=== PATIENT | female | born 1965 | race Caucasian/White ===

== ENCOUNTER → 2022-06-15 11:35 | Outpatient (CLI) | payer OTHER, SELFPAY ==
--- NOTE | ~2022-06-15 | US_ITS ---
EXAMINATION: US transvaginal DATE: 06/15/2022 12:02 INDICATION: Follow-up ovarian cyst Comparison:No prior studies for comparison. TECHNIQUE: Multiple transabdominal and endovaginal sonographic images of the pelvis performed. FINDINGS: The uterus measures 6.9 x 3 x 4.3 cm. The endometrial complex measures 2 mm. The right ovary measures 4.9 x 3 x 4.3 cm and the left ovary is not visualized. In the right ovary th ere is a complicated cyst containing septations measuring 3.6 x 2.3 x 2.9 cm. There is no free fluid in the pelvis. There are no abnormal masses seen on either side. IMPRESSION: 1. Complicated septated cyst of the right ovary measuring 3.6 x 2.3 x 2.9 cm. Otherwise, unremarkable pelvic ultrasound. Reviewed, dictated and finalized at location B. IMPRESSION: 1. Complicated septated cyst of the right ovary measuring 3.6 x 2.3 x 2.9 cm. O therwise, unremarkable pelvic ultrasound.
== END ==
PROVIDERS: PCP Registered Nurse; Visit Provider Obstetrics & Gynecology Gynecology
DX: N83.291 Other ovarian cyst, right side (principal)
CPT/HCPCS: 76830

== ENCOUNTER → 2022-07-10 12:07 | Outpatient (CLI) | payer OTHER, SELFPAY ==
--- NOTE | ~2022-07-10 | MM_ITS ---
EXAMINATION: MM screening rogelio BI w marah HISTORY: Screening mammogram TECHNIQUE: Craniocaudal and mediolateral oblique 3-D tomosynthesis images were obtained and synthetic 2-D images were generated. CAD analysis was submitted and interpreted. COMPARISON: No prior mammogram is available for comparison at this institution. BREAST PARENCHYMAL COMPOSITION: The breasts are heterogeneously dense, which may obscure small masses . FINDINGS: No suspicious mass, calcification, or architectural distortion are identified in either maren ast to suggest malignancy. IMPRESSION: 1. No mammographic evidence of malignancy. 2. Recommend routine screening mammography in one year. BI-RADS Category 1: Negative Reviewed, dictated and finalized at location A.
--- NOTE | ~2022-07-10 | DEXA_ITS ---
Bone Density Report Name: YOLANDE LARRY Age: 57 Sex: Female Ethnicity: White Date of : 1965 Indication: postmenopausal; screening for osteoporosis; height loss; Referring Provider: ANIA THOMPSON Study: Bone densitometry was performed. Exam Date: July 10, 2022 Accession number: [id number] Bone Density: Region BMD T-score Z-score Classification AP Spine (L1, L2, L3) 0.990 -0.3 0.8 Normal Femoral Neck (Left) 0.903 0.5 1.5 Normal Total Hip (Left) 1.070 1.1 1.7 Normal Femoral Neck (Right) 0.957 1.0 2.0 Normal Total Hip (Right) 0.986 0.4 1.0 Normal Total Hip Mean 1.028 0.8 1.4 Normal World Health Organization criteria for BMD impression classify patients as: Normal (T-score at or above -1.0), Osteopenia (T-score between -1.0 and -2.5), or Osteoporosis (T-score at or below -2.5). 10-year Fracture Risk: FRAX not reported because: All T-scores for Spine Total, Hip Total, Femoral Neck at or above -1.0 Clinical Information Provided by Patient: Has used the following medications: Vitamin D Patient maximum height was 72 Menopause Age: 50 No regular weight bearing exercise Drinks caffeinated beverages Onset of menses at age 13 Number of children 2 Impression: The patient has normal bone mass. Discussion: BONE DENSITY IS ABOVE THE MINIMUM DESIRABLE LEVEL AT ALL SKELETAL SITES TESTED. This patient?s bone mineral density is above the minimum desirable level (T-score -1.0 or better) at all sites measured. The patient should follow a healthful lifestyle (good nutrition with adequate calcium and vitamin D, and appropriate weight-bearing exercise). Follow-Up: Consider repeating this study in 5 years or sooner if there is some new clinical indication. Reported by: [facility] on 07/10/2022 1:01:00 PM. Reviewed, dictated and finalized at location AChar [facility]
== END ==
PROVIDERS: PCP Registered Nurse; Visit Provider Obstetrics & Gynecology Gynecology
DX: Z12.31 Encounter for screening mammogram for malignant neoplasm of breast (principal); Z78.0 Asymptomatic menopausal state
CPT/HCPCS: 77063; 77067; 77080

== ENCOUNTER → 2022-08-17 10:49 | Outpatient (CLI) | payer OTHER, SELFPAY ==
--- NOTE | ~2022-08-17 | US_ITS ---
EXAMINATION: US transvaginal DATE: 08/17/2022 11:22 INDICATION: Unspecified ovarian cyst TECHNIQUE: Multiple endovaginal sonographic images of the pelvis were obtained. COMPARISON: 06/15/2022 FINDINGS: The uterus measures 6.5 x 2.9 x 4.4 cm. The endometrial complex measures 2 mm. The left ova ry is not visualized however no left adnexal abnormality is seen. The right ovary measures 4.4 x 3.3 x 3.9 cm. There is a 2.9 x 2.9 x 2.9 cm cyst of the right ovary with thin internal septation which is slightly decreased in size. There is normal vascular flow in the right ovary. There is no free fluid in the pelvis. IMPRESSION: 1. Right ovarian cyst with thin internal septation with slight decrease in size. Follow-up pelvic ult rasound in one year is recommended. Reviewed, dictated and finalized at location A. ING MACHINE UPKEEP MECHANIC HELPER IMPRESSION: 1. Right ovarian cyst with thin internal septation with slight decrease in size . Follow-up pelvic ultrasound in one year is recommended.
== END ==
PROVIDERS: PCP Registered Nurse; Visit Provider Obstetrics & Gynecology Gynecology
DX: N83.201 Unspecified ovarian cyst, right side (principal)
CPT/HCPCS: 76830

== ENCOUNTER 2024-11-16 17:58 | Observation (INO) | payer OTHER, SELFPAY ==
[2024-11-16] VITALS (19 sets, daily range): BP systolic 102–135; BP diastolic 66–87; PULSE 89–110; RESP 12–32; TEMP 36.4; O2SAT 97–100
--- NOTE | ~2024-11-16 | CT_ITS ---
History: Syncope PROCEDURE: CT head without contrast. COMPARISON: None 10/12/2024 TECHNIQUE: Axial imaging of the head performed from the skull base to the vertex without IV contrast. Sagittal a nd coronal reformations obtained. DLP: 681 mGy-cm FINDINGS: The ventricles are normal in size, shape and position. There is no mass, mass effect or midline shift. There is no abnormal extra-axial fluid collection or intracranial hemorrhage. Visualized paranasal sinuses are clear. The mastoid air cells are well aerated. No acute displaced fractures within the overlying cranium. Impression: No acute intracranial hemorrhage or suspicious mass effect. Reviewed, dictated and finalized at location A. STRIAL RELATIONS OFFICER Impression: No acute intracranial hemorrhage or suspicious mass effect.
--- NOTE | ~2024-11-16 | CT_ITS ---
Clinical Indication: Pulmonary embolus, syncope CT Scan of the Chest with Contrast: Technique: Contiguous sections were acquired throughout the chest after intravenous administration of 100 cc of Omnipaque 350. Dose reduction technique was used on this scan by utilizing automated expos ure control and iterative reconstruction technique. The dose-length product (DLP) was 509.43 mGy-cm. COMPARISON: 10/12/2024 Findings: There is no evidence of any significant mediastinal, hilar or axillary lymphadenopathy. There are a f ew small eccentric filling defects at branch points and segmental branches in the right lower lobe, s uggestive of subacute to chronic pulmonary emboli or resolving pulmonary acute pulmonary emboli. No l arge central pulmonary embolus seen.. There is no evidence of aortic dissection or aneurysm. There is no evidence of pleural or pericardial effusion. The lungs are clear. No pulmonary nodules or infiltrates are noted. Images through the upper abdomen reveal no abnormalities. Impression: Suggestion of several small subacute to chronic or resolving pulmonary emboli in segmental branches i n the right lower lobe. No large central pulmonary embolus. Clear lungs. Reviewed, dictated and finalized at location M. RETE BLOCK LAYER Impression: Suggestion of several small subacute to chronic or resolving pulmonary emboli i n segmental branches in the right lower lobe. No large central pulmonary embolu s. Clear lungs.
--- OUTSIDE RECORDS SUMMARY | 2024-11-16 18:01 | XMS_ITS | Encounter Summary ---
Author Organization [facility] Address Critical access hospital[address] [place] [address] Care Team Providers Care Kiln Furniture Caster Name Role Phone Jennifer Kinsey PA-C Primary Care Provider [phone] Maryanne Gage RN Unavailable [phone] Reason for Visit * Reason Onset Date Comments Hospital Follow Up 11/16/2024 Call to [facility]. Encounter Details Date Type Department Care Team (Late st Contact Info) Description 11/16/2024 Patient Outreach [facility] Family [facility] Internal Medicine [facility] [id number] [place] [phone] Maryanne Gage, RN [address] [place] [address] Hospital Follow Up (Call to [facility] Social History Tobacco Use Types Packs/Day Years Used Date Smoking Tobacco: Never Smokeless Tobacco: Never Comments:na Alcohol Use Standard Drinks/Week Comments Yes 1 (1 standard drink = 0.6 oz pur e alcohol) Socially, 1x per week [facility] Utilities Answer Date Recorded In the past 12 months has e electric, gas, oil, or water company threatened to shut off services in your home? No 10/09/2023 Humiliation, Afraid, Rape, and Kick questionnair e Answer Date Recorded Within the last year, have y ou been afraid of your partner or ex-partner? No 10/09/2023 Within the last year, have y ou been humiliated or emotionally abused in other ways by your partner or ex-partner? No Within the last year, have y ou been kicked, hit, slapped, or otherwise physically hurt by your partner or ex-partner? No 10/09/2023 Within the last year, have y ou been raped or forced to have any kind of sexual activity by your partner or ex-partner? No 10/09/2023 Overall Financial Resource Strain (CARDIA) Answe r Date Recorded How hard is it for you to pa y for the very basics like food, housing, medical care, and heating? Somewhat hard 10/09/2023 PHQ-2 Answer Date Recorded Patient Health Questionnaire-2 Score 0 12/02/2023 Hunger Vital Sign Answer Date Recorded Within the past 12 months, y ou worried that your food would run out before you got the money to buy more. Never true 10/09/19 24 Within the past 12 months, t he food you bought just didn't last and you didn't have money to get more. Never true 10/09/2023 PRAPARE - Transportation Answer Date Re corded In the past 12 months, has l ack of transportation kept you from medical appointments or from getting medications? No 09/17 In the past 12 months, has l ack of transportation kept you from meetings, work, or from getting things needed for daily living? No 10/09/2023 Housing Stability Vital Sign Answer Mati e Recorded In the last 12 months, was t here a time when you were not able to pay the mortgage or rent on time? No 10/09/2023 In the last 12 months, how many places have you lived? 1 10/09/2023 In the last 12 months, was t here a time when you did not have a steady place to sleep or slept in a fci (including now)? No 10/09/2023 Comments No Sex and Gender Information Value Date Recorded Sex Assigned at Female 10/16/2024 2:10 PM DIGITAL ACCOUNT COORDINATOR Legal Sex Female 9:13 PM DIGITAL ACCOUNT COORDINATOR Gender Identity Female 09/13/2021 1:09 PM DIGITAL ACCOUNT COORDINATOR Sexual Orientation Not on file documented as of this encounter Functional Status * Are you deaf or do you have serious difficulty hearing Answer Date of Assessment Author Status No 10/09/2023 6:09 PM DIGITAL ACCOUNT COORDINATOR Salina Ignacio RN Active * Are you blind or do you have serious difficulty seeing, even when wearing glasses? Answer Date of Assessment Author Status No 10/09/2023 6:09 PM Salina Mark RN Active * Do you have serious difficulty walking or climbing stairs? Answer Date of Assessment Author Status No 10/09/2023 6:09 PM Salina Mark RN Active * Do you have difficulty dressing or bathing? Answer Date of Assessment Author Status No 10/09/2023 6:09 PM Salina Mark RN Active * Because of a physical, mental, or emotional condition, do you have difficulty doing errands alone such as visiting a doctor's office or shopping? Answer Date of Assessment Author Status No 10/09/2023 6:09 PM Salina Mark RN Active documented as of this encounter Mental Status * Because of a physical, mental, or emotional condition, do you have serious difficulty concentrating, remembering, or making decisions? Answer Entry Date Author Status No 10/09/2023 6:09 PM Salina Mark RN Active documented in this encounter Plan of Treatment Upcoming Encounters Date Type Department Care Team (Late st Contact Info) Description 04/07/2025 11:45 AM CDT Office Visit [facility] [address] [phone] Jourdan Carlton MD [address] [address] documented as of this encounter Visit Diagnoses Not on filedocumented in this encounter Additional Health Concerns Infection Onset Date Last Indicated Resolved Time ESBL - Extended Spectrum Bet a-lactamase Comment:10/09/23 urine (RR) 10/09/2023 10/09/2023 Assessment Noted Time PHQ-9 Depression Total Score: 0 02/14/20 4:31 PM CDT documented as of this encounter Care Teams Kiln Furniture Caster Relationship Specialty Start Date End Date Jennifer Kisney PA-C [id number] [address] PCP - General PHYSICIAN ELECTRONIC WARFARE OPERATOR 01/31/23 Maryanne Gage, RN [address] [place] [address] Carpet Weaver (Ambulatory) REGISTERED NURSE 10/15/24 documented as of this encounter
--- OUTSIDE RECORDS SUMMARY | 2024-11-16 18:01 | XMS_ITS | Encounter Summary ---
Author Organization [facility] Address Critical access hospital[address] [place] [address] Care Team Providers Care Housekeeping Director Name Role Phone Latisha Huber APNP Primary Care Provider [phone] Ebony Mckeon RN Unavailable [phone] Jennifer Kinsey-C Primary Care Provider [phone] Annie Marques RN Unavailable [phone] Maryanne Gage RN Unavailable [phone] Reason for Referral * Surgical (Routine) - Closed Specialty Diagnoses / Procedures Referred By Contac t Referred To Contact Diagnoses Varicose veins of right lower extremity with pain Procedures Case request operating room: GREATER SAPHENOUS VEIN STRIPPING WITH HIGH LIGATIONSTAB PHLEBECTOMY Jourdan Carlton MD [facility]. [facility] [address] [place] [address] Phone: tel: fax: [place] [address] Phone: tel: Referral ID Status Reason Start Date Expiration Date Visits Re quested Visits Authorized [id number] Closed 05/26/2021 06/18/2022 1 1 Encounter Details Date Type Department Care Team (Late st Contact Info) Description 05/19/2021 Prep for Procedure [facility], [facility] [address] [place] [address] Jourdan Carlton MD [facility]. [facility] [address] [place], [place] [id number] Social History Tobacco Use Types Packs/Day Years Used Date Smoking Tobacco: Never Smokeless Tobacco: Never Alcohol Use Standard Drinks/Week Comments Yes 1 (1 standard drink = 0.6 oz pur e alcohol) Socially, 1x per week PHQ-2 Answer Date Recorded PHQ-2 Score - If the patient scores above 3, please move on to questions 3-9 0 05/17/2021 Comments No Sex and Gender Information Value Date Recorded Sex Assigned at Female 10/16/2024 2:10 PM RADIATION THERAPIST Legal Sex Female 9:13 PM RADIATION THERAPIST Gender Identity Female 09/13/2021 1:09 PM RADIATION THERAPIST Sexual Orientation Not on file COVID-19 Exposure Response Date Recorded In the last month, have you been in contact with someone who was confirmed or suspected to have Coronavirus / COVID-19? Unable to assess 05/17/2021 11:48 AM CDT documented as of this encounter Functional Status * RETIRED Are you deaf or do you have serious difficulty hearing Answer Date of Assessment Author Status No 03/08/2021 6:46 PM CDT Activ e * RETIRED Are you blind or do you have serious difficulty seeing, even when wearing glasses? Answer Date of Assessment Author Status No 03/08/2021 6:46 PM CDT Activ e * Do you have serious difficulty walking or climbing stairs? Answer Date of Assessment Author Status No 03/08/2021 6:46 PM CDT Cielo Solo RN Active * Do you have difficulty dressing or bathing? Answer Date of Assessment Author Status No 03/08/2021 6:46 PM CDT Cielo Solo RN Active * Because of a physical, mental, or emotional condition, do you have difficulty doing errands alone such as visiting a doctor's office or shopping? Answer Date of Assessment Author Status No 03/08/2021 6:46 PM CDT Cielo Solo RN Active documented as of this encounter Mental Status * Because of a physical, mental, or emotional condition, do you have serious difficulty concentrating, remembering, or making decisions? Answer Entry Date Author Status No 03/08/2021 6:46 PM CDT Cielo Solo RN Active documented in this encounter Plan of Treatment Upcoming Encounters Date Type Department Care Team (Late st Contact Info) Description 04/07/2025 11:45 AM CDT Office Visit [facility] [address] [place] [phone] Jourdan Carlton MD [address] [address] Scheduled Orders Name Type Priority Associated Diagnoses Orde r Schedule Case request operating room: GREATER SAPHENOUS VEIN STRIPPING WITH HIGH LIGATIONSTAB PHLEBECTOMY Case Request Routine Once for 1 Occurrences starting 05/19/2021 until 05/19/2021 documented as of this encounter Visit Diagnoses Diagnosis Varicose veins of lower extremity with pain, right- Primary Pulmonary embolism, bilateral (CMS/HCC HHS/HCC) Other pulmonary embolism and infarction documented in this encounter Additional Health Concerns Infection Onset Date Last Indicated Resolved Time COVID-19 Rule Out 09/13/2021 09/13/2021 09/13/2021 9:37 AM RADIATION THERAPIST COVID-19 Rule Out 09/13/2021 09/13/2021 09/14/2021 9:33 PM RADIATION THERAPIST ESBL - Extended Spectrum Beta-lactamase Comment:10/09/23 urine (RR) 10/09/2023 10/09/2023 Assessment Noted Time PHQ-9 Depression Total Score: 0 05/17/20 11:47 AM CDT documented as of this encounter Care Teams Housekeeping Director Relationship Specialty Start Date End Date Latisha Huber APNP [id number] [address] PCP - General Nurse Practitioner Family 02/20/21 01/30/23 Jennifer Kinsey PA-C [address] [address] PCP - General PHYSICIAN CONTINUING EDUCATION DIRECTOR 01/31/23 Ebony Mckeon RN [address] [place] [address] Administrative Nursing Supervisor (Ambulatory) REGISTERED NURSE 05/02/21 06/13/21 Annie Marques RN [address] [place] [address] Administrative Nursing Supervisor (Ambulatory) REGISTERED NURSE 10/10/23 10/13/23 Maryanne Gage RN [address] [place] [address] Administrative Nursing Supervisor (Ambulatory) REGISTERED NURSE 10/15/24 documented as of this encounter
--- OUTSIDE RECORDS SUMMARY | 2024-11-16 18:01 | XMS_ITS | Clinical Summary ---
Author Organization [facility] Address [address] [place] [address] Care Team Providers Care Drafter Landscape Name Role Phone Jennifer Kinsey PA-C Primary Care Provider [phone] Maryanne Gage RN Unavailable [phone] Allergies No known active allergies Medications multivitamin tablet Take 1 tablet by mouth daily. Active cranberry 500 MG Cap Take 1 capsule by mouth nightly at bedtime. Active acetaminophen 325 MG tablet Take 2 tablets (650 mg total) by mouth every 6 (six) hours as needed for Pain. Active magnesium oxide 400 (241.3 Mg) MG tablet Take 1 tablet (400 mg total) by mouth nightly at bedtime. Active Cranberry Powder Take 1 capsule by mouth. Active apixaban (ELIQUIS) 5 MG tabletIndications:Perso nal history of PE (pulmonary embolism) Take 1 tablet (5 mg total) by mouth 2 (two) times daily. 180 tablet 1 Active topiramate (TOPAMAX) 50 MG TabIndications:Migraine without aura and without status migrainosus, not intractable Take 1 tablet (50 mg total) by mouth 2 (two) times daily. 180 tablet 3 024 Active ALPRAZolam (XANAX) 1 MG tabletIndications:Anxie ty Take 1 tablet 30 minutes to 1 hour prior to MRI. May repeat if needed. 2 tablet Active tirzepatide (ZEPBOUND) 2.5 MG/0.5ML injectionIndications:We ight Loss Inject 2.5 mg into the skin once a week. Indications: Weight Loss 2 mL 2 024 Active PARoxetine (PAXIL) 30 MG tabletIndications:Anxie ty take 1 tablet by mouth every day 90 tablet 1 024 Active omeprazole (PRILOSEC) 20 MG capsuleIndications:Bobo roesophageal reflux disease without esophagitis TAKE 1 CAPSULE (20 MG TOTAL) BY MOUTH NIGHTLY AT BEDTIME. 90 capsule 1 024 Active atorvastatin (LIPITOR) 40 MG tabletIndications:Famil ial hypercholesterolemia TAKE 1 TABLET BY MOUTH EVERYDAY AT BEDTIME 90 tablet 024 Active amitriptyline (ELAVIL) 50 MG tabletIndications:Migra ine without aura and without status migrainosus, not intractable TAKE 1 TABLET BY MOUTH NIGHTLY AT BEDTIME 90 tablet 1 024 Active bisacodyl EC (DULCOLAX) 5 MG Tab EC tablet Take 2 tablets (10 mg total) by mouth daily as needed (constipation) . at bedtime. Active loperamide (IMODIUM) 2 MG capsule Take 1 capsule (2 mg total) by mouth 4 (four) times daily as needed for Diarrhea. Active melatonin 3 MG tablet Take 1 tablet (3 mg total) by mouth nightly at bedtime. Active midodrine (PROAMATINE) 5 MG tablet Take 1 tablet (5 mg total) by mouth 3 (three) times daily. Active oxyCODONE-acetaminophen (PERCOCET) 5-325 MG tablet Take 1 tablet by mouth every 4 (four) hours as needed for Pain. Active dabigatran (PRADAXA) 150 MG Cap Take 1 capsule (150 mg total) by mouth 2 (two) times daily. Active predniSONE (DELTASONE) 10 mg tablet Take 1 tablet (10 mg total) by mouth daily. Active traMADol (ULTRAM) 50 MG tabletIndications:Acute Pain < 7 Day Supply Take 1 tablet (50 mg total) by mouth every 6 (six) hours as needed for Pain. Indications: Acute Pain < 7 Day Supply 20 tablet 023 2024 Discontin ued(Disco ntinued by another clinician ) Diclofenac Sodium 3 % GelIndications:Right foot pain Apply 1 Application topically 2 (two) times daily as needed. 100 g 1 024 2024 Discontin ued(Disco ntinued by another clinician ) cyclobenzaprine (FLEXERIL) 10 MG tabletIndications:Rib pain 1 TAB BY MOUTH TWICE DAILY NEEDED FOR MUSCLE PAIN. DO NOT DRIVE OR WORK WHILE TAKING MEDICATION. 30 tablet 024 2024 Discontin ued(Disco ntinued by another clinician ) buPROPion XL (WELLBUTRIN XL) 150 MG 24 hr tabletIndications:Class 1 obesity with body mass index (BMI) of 31.0 to 31.9 in adult, unspecified obesity type, unspecified whether serious comorbidity present Take 1 tablet (150 mg total) by mouth daily. 30 tablet 024 2024 Discontin ued(Disco ntinued by another clinician ) buPROPion XL (WELLBUTRIN XL) 300 MG 24 hr tabletIndications:Class 1 obesity without serious comorbidity with body mass index (BMI) of 31.0 to 31.9 in adult, unspecified obesity type TAKE 1 TABLET BY MOUTH EVERY DAY 90 tablet 025 2024 Discontin ued(Disco ntinued by another clinician ) Active Problems Problem Noted Date Diagnosed Date Other thrombophilia ([facility]) 12/13/2023 Acute cystitis without hematuria 10/10/2023 Near syncope 10/10/2023 Elevated troponin 10/09/2023 Trochanteric bursitis of both hips 02/18/2023 Overweight (BMI 25.0-29.9) 06/06/2022 Assessment & Plan (10/08/2022 12:26 PM LOOP CUTTER): We discussed the adverse effects of weight on osteoarthritis. For every 1 pound loss, 4 to 6 pounds of stress is relieved from the knee, slightly more at the ankle and slightly less at the hip. We discussed low carbohydrate diet to help with weight loss. 80% of weight loss is through diet. Sciatica of right side 12/03/2021 Assessment & Plan (12/03/2021 10:03 AM CDT): I believe this is the reason for her right leg pain and discomfort. Unfortunately on blood thinners and cannot use anti-inflammatories.. Would discontinue the narcotics as it usually does not help with nerve pain. We will begin a muscle relaxer and formal physical therapy. Follow-up in 6 weeks if no significant improvement. Primary osteoarthritis of both knees 12/03/2021 Assessment & Plan (10/06/2024 7:42 PM LOOP CUTTER): We discussed the risks, benefits, and alternatives. The only thing proven to slow the progression of osteoarthritis is weight loss. Every pound lost relieves 4 to 6 pounds of stress across the knee. We discussed unloading braces. Formal physical therapy to help with flexibility, mobility, and strength. We discussed TENS units. Nonsteroidal anti-inflammatories as well as Tylenol and pain medication and their side effects. We discussed steroid versus Visco supplement injection. We discussed eventual total knee arthroplasty. Recommendation at this time, went over the risks, the benefit, , as well as the alternatives Steroid was injected bilateral. Tolerated well.. We will see her back in 1 month for gel shot injection. Assessment & Plan (07/06/2024 7:00 PM CDT): We discussed the risks, benefits, and alternatives. The only thing proven to slow the progression of osteoarthritis is weight loss. Every pound lost relieves 4 to 6 pounds of stress across the knee. We discussed unloading braces. Formal physical therapy to help with flexibility, mobility, and strength. We discussed TENS units. Nonsteroidal anti-inflammatories as well as Tylenol and pain medication and their side effects. We discussed steroid versus Visco supplement injection. We discussed eventual total knee arthroplasty. A steroid was injected bilateral, tolerated well. Flashback of synovial fluid on both knees. We'll see her in three months. Assessment & Plan (03/31/2024 2:55 PM CDT): We discussed the risks, benefits, and alternatives. The only thing proven to slow the progression of osteoarthritis is weight loss. Every pound lost relieves 4 to 6 pounds of stress across the knee. We discussed unloading braces. Formal physical therapy to help with flexibility, mobility, and strength. We discussed TENS units. Nonsteroidal anti-inflammatories as well as Tylenol and pain medication and their side effects. We discussed steroid versus Visco supplement injection. We discussed eventual total knee arthroplasty. Recommendation at this time, steroids were injected bilaterally, tolerated it well. We'll see her back in three months. Assessment & Plan (02/24/2024 9:49 PM CDT): We discussed the risks, benefits, and alternatives. The only thing proven to slow the progression of osteoarthritis is weight loss. Every pound lost relieves 4 to 6 pounds of stress across the knee. We discussed unloading braces. Formal physical therapy to help with flexibility, mobility, and strength. We discussed TENS units. Nonsteroidal anti-inflammatories as well as Tylenol and pain medication and their side effects. We discussed steroid versus Visco supplement injection. We discussed eventual total knee arthroplasty. Synvisc was injected bilateral and tolerated it well. We'll see her back any time after March 27 for a possible steroid injection. Assessment & Plan (12/27/2023 6:59 PM CDT): Recommendation at this time: went over the risks, benefits as well as the alternatives. All questions are answered. Steroid was injected bilateral knees today. Tolerated it well. Will get her pre-approved for viscosupplementation. Patient will be seen back once approved for viscosupplementation. Assessment & Plan (07/09/2023 4:19 PM CDT): We discussed the risks, benefits, and alternatives. The only thing proven to slow the progression of osteoarthritis is weight loss. Every pound lost relieves 4 to 6 pounds of stress across the knee. We discussed unloading braces. Formal physical therapy to help with flexibility, mobility, and strength. We discussed TENS units. Nonsteroidal anti-inflammatories as well as Tylenol and pain medication and their side effects. We discussed steroid versus Visco supplement injection. We discussed eventual total knee arthroplasty. Patient received Synvisc 48mg/6ml knee injection today.She will follow up in 3 months in August. Assessment & Plan (06/06/2023 5:42 PM CDT): Recommendation at this time, we went over the risks and benefits as well as the alternatives. All questions are answered. She wants to avoid surgery at this time. The steroid was injected bilaterally. Altram was refilled. Pre-approval for viscosupplements. We'll see her back in three months. Assessment & Plan (02/18/2023 9:51 PM CDT): Recommendation at this time: The patient has no previous x-rays of her left knee. Therefore we will get her set up for left knee x-rays. In addition, we will repeat x-rays of her right knee as well as an MRI. We will administer a steriod injection in both knees today. We will follwo-up in three months. Assessment & Plan (11/05/2022 11:28 AM LOOP CUTTER): We discussed the risks, benefits, and alternatives. The only thing proven to slow the progression of osteoarthritis is weight loss. Every pound lost relieves 4 to 6 pounds of stress across the knee. We discussed unloading braces. Formal physical therapy to help with flexibility, mobility, and strength. We discussed TENS units. Nonsteroidal anti-inflammatories as well as Tylenol and pain medication and their side effects. We discussed steroid versus Visco supplement injection. We discussed eventual total knee arthroplasty. Patient received Synvisc 48mg/6ml knee injection today.She will follow up in 3 months. Assessment & Plan (10/08/2022 12:23 PM LOOP CUTTER): We discussed the risks, benefits, and alternatives. The only thing proven to slow the progression of osteoarthritis is weight loss. Every pound lost relieves 4 to 6 pounds of stress across the knee. We discussed unloading braces. Formal physical therapy to help with flexibility, mobility, and strength. We discussed TENS units. Nonsteroidal anti-inflammatories as well as Tylenol and pain medication and their side effects. We discussed steroid versus Visco supplement injection. We discussed eventual total knee arthroplasty. We discussed the risks, benefits and alternatives. All questions were answered and informed consent is obtained. The RT knee is prepped with alcohol and Betadine. Under sterile technique an 18-gauge needle was inserted to the medial patellofemoral joint and [20] milliliters of synovial fluid is aspirated. Kenalog 80mg/2ml and 4ml Markane 0.5% was injected into knee. Patient tolerated the procedure well without adverse effects. Area is cleansed and a Band-Aid is placed. Assessment & Plan (12/14/2021 4:48 PM CDT): We discussed the risks, benefits and alternatives. The only thing proven to slow the progression of osteoarthritis is weight loss. Every pound lost relieves 4 to 6 pounds of stress across the knee. We discussed unloading braces. Formal physical therapy to help with flexibility, mobility and strength. We discussed TENS units. Nonsteroidal anti-inflammatories as well as Tylenol and pain medication and their side effects. We discussed steroid versus Visco supplement injection. We discussed eventual total knee arthroplasty. Continue with conservative treatment. Follow-up as needed Assessment & Plan (12/03/2021 10:02 AM CDT): We discussed the risks, benefits and alternatives. The only thing proven to slow the progression of osteoarthritis is weight loss. Every pound lost relieves 4 to 6 pounds of stress across the knee. We discussed unloading braces. Formal physical therapy to help with flexibility, mobility and strength. We discussed TENS units. Nonsteroidal anti-inflammatories as well as Tylenol and pain medication and their side effects. We discussed steroid versus Visco supplement injection. We discussed eventual total knee arthroplasty. However, I doubt that all of her pain and discomfort is coming from the knee. We did offer steroid injection today but she would like to hold off on that. Has already been on multiple steroid so would like to avoid any repetitive steroids at this time. Patella jayna 12/03/2021 Assessment & Plan (12/14/2021 4:48 PM CDT): Continue with conservative treatment. Follow-up as needed Assessment & Plan (12/03/2021 9:59 AM CDT): Although she does have some osteoarthritis at the patellofemoral joint. I do not believe her quadricep tendon or patellar tendon have ruptured. I think she just has patella alto. However we do not have x-rays of her other knee. She has full extension. I would just hold off and treat the osteoarthritis in her lumbar spine and sciatica. Spondylolysis of lumbar region 12/03/2021 Assessment & Plan (12/14/2021 4:48 PM CDT): Physical therapy is helping significantly. Pain is a 1 out of 10. Follow-up as needed Assessment & Plan (12/03/2021 9:59 AM CDT): Although no significant herniation is noted on MRI. Venous insufficiency 05/29/2021 Varicose veins of right lower extremity with zelda n 04/03/2021 Cholecystitis 03/08/2021 Choledocholithiasis 03/08/2021 Acute cholecystitis 03/07/2021 Anxiety 03/21/2020 Gastroesophageal reflux disease without esophagi tis 03/21/2020 Dysphagia, unspecified type 02/18/2020 Odynophagia 02/18/2020 Right thyroid nodule 02/18/2020 Sinusitis, unspecified chronicity, unspecified l ocation 04/15/2019 Personal history of PE (pulmonary embolism) 01/14 Acute deep vein thrombosis ( DVT) of femoral vein ([facility]) 01/26/2019 Migraine without aura and wi thout status migrainosus, not intractable 08/05/2018 Symptomatic varicose veins, left 08/05/2018 Rash, skin 08/05/2018 Encounters Date Type Department Care Team Description 11/16/2024 Patient Outreach [facility] Internal [address] [phone] Maryanne Gage RN Hospital Follow Up (Call to [facility].) 10/28/2024 Telephone [facility] Care Management [address] [place] [id number] Mayte Martin, business center attendant (Swing bed referral to [facility] from [facility]) 10/19/2024 Patient Outreach [facility] Family Internal [address] [phone] Maryanne Gage, RN Hospital Follow Up (Call to [facility] ) 10/16/2024 Telephone [facility] Internal [address] [phone] Jennifer Kinsey PA-C FYI 10/16/2024 Patient Outreach [facility] Family & Internal Medicine [address] [phone] Maryanne Gage RN Hospital Follow Up (Call to [facility]) 10/15/2024 Patient Outreach [facility] Family & Internal [address] [phone] Maryanne Gage RN Hospital Follow Up (TCM [facility] admit 10/13/24- UTI, syncope, hypokalemia and elevated troponin. ) 10/13/2024 Scan [facility] INFO SRVCS Scanned, [facility] 10/05/2024 4:00 PM LOOP CUTTER Office Visit [facility] Orthopedic Surgery [address] [place] [address] John Santos DO Knee Pain (PANDA Knee Pain) 10/05/2024 Scan [facility] HE[facility] INFO SRVCS Scanned, [facility] 10/05/2024 Travel 08/28/2024 Telephone [facility] Internal [address] [phone] Jennifer Kinsey PA-C Referral from Last 3 Months Immunizations Name Administration Dates Next Due FLUCELVAX (ccIIV3, TRIVALENT, 0.5mL) 05/14/2024 Flublok (Quadrivalent) 06/18/2019 Fluzone 6 Months+ Quad (0.5 mL Prefilled Syringe) 07/06/2020 Influenza (Generic) 06/18/2019 Influenza Adult (Generic) 07/04/2023,,06/08/2022, 021,07/09/2017,07/30/2016 PFIZER COVID-19 (CARTY CAP), MRNA, LNP-S, PF, 30 MCG/0.3 ML DOE-SUCROSE, IM 12/23/2021 PFIZER COVID-19 (ORIGINAL FORMULATION, PURPLE CAP) mRNA, LNP-S, PF, 30 MCG/0.3 ML DOSE 06/09/2022,07/31/2021,12/10/2020, 021 PFIZER COVID-19 BIVALENT (12 +) mRNA, LNP-S, PF, 30 MCG/0.3 ML DOSE 06/08/2022 Shingrix 10/17/2021,07/31/2021,11/17/2019 Tdap (Historical Only-select from magnify glass) 08/05/2018 Family History Medical History Relation Comments Other Brother Heart Attack Father Heart Disease Father Migraines/Headaches Father Other Father MVP CHF Mother Heart Attack Mother Heart Disease Sister 1 passed out, pace maker placed, decreased heart output Mitral Valve Prolaps Sister 1 Cancer Sister 2 PANCREATIC CANCE R Other Sister 2 Pancreas Disease Sister 2 No Known Problems Son 2 Relation Status Comments Brother Alive Father Mother (Age 76) of unknow n cause, Possibly CHF Sister 1 Alive Sister 2 Son 1 Alive Son 2 Alive Social History Tobacco Use Types Packs/Day Years Used Date Smoking Tobacco: Never Smokeless Tobacco: Never Tobacco Cessation:Counseling Given: No Comments:na Alcohol Use Standard Drinks/Week Comments Yes 1 (1 standard drink = 0.6 oz pur e alcohol) Socially, 1x per week [facility] Utilities Answer Date Recorded In the past 12 months has e electric, gas, oil, or water [employer] threatened to shut off services in your [...] money to buy more. Never true 10/09/19 Within the past 12 months, t he [...] place to sleep or slept in a correction (including now)? No 10/09/2023 Comments No Sex and Gender Information Value Date Recorded Sex Assigned at Female 10/16/2024 2:10 PM LOOP CUTTER Legal Sex Female 9:13 PM LOOP CUTTER Gender Identity Female 09/13/2021 1:09 PM LOOP CUTTER Sexual Orientation Not on file Last Filed Vital Signs Vital Sign Reading Time Taken Comments Blood Pressure 126/68 10/05/2024 4:12 PM LOOP CUTTER Pulse 78 10/05/2024 4:12 PM LOOP CUTTER Temperature 36.3 C (97.4 F) 10/05/2024 4:12 PM LOOP CUTTER Respiratory Rate 14 03/20/2024 4:17 PM CDT Oxygen Saturation 100% 10/05/2024 4:12 PM LOOP CUTTER Inhaled Oxygen Concentration - - Weight 95.2 kg (209 lb 12.8 oz) 10/05/2024 4:12 PM LOOP CUTTER Height 180.3 cm (5' 11 ) 10/05/2024 4:12 PM LOOP CUTTER Body Mass Index 29.26 10/05/2024 4:12 PM LOOP CUTTER Plan of Treatment Upcoming Encounters Date Type Department Care Team (Late st Contact Info) Description 04/07/2025 11:45 AM CDT Office Visit [facility] [address] [place] [address] Jourdan Carlton MD [facility] [address] [place] [address] Health Maintenance Due Date Last Done Comments Annual Physical 1970 Hepatitis B Vaccines (1 of 3 - 19+ 3-dose series) 1986 Cervical Cancer Screening Pap with HPV Testing (Age 30 to 64) Every 5 Years 1997 Cervical Cancer Screening Pap Smear (Age 30 to 64) Every 3 Years 09/24/2021 09/24/2018, 09/24/2018 Cervical Cancer Screening with HPV 09/24/2021 Mammogram Screening 07/10/2024 07/10/2022 PHQ-2 (Physician [place]) 09/16/2024 12/02/2023 Colorectal Cancer Screening Colonoscopy (10 Years) 09/11/2027 Postponed from 1967 (Awaiting Documentation) DTaP, Tdap and Td Vaccines (2 - Td or Tdap) 08/05/2028 08/05/2018 Hepatitis C 11/29/2052 Postponed from 1985 (Patient Refused) Zoster Vaccines Completed 10/17/2021, 07/17, 11/17/2019 COVID-19 Vaccine Completed 05/14/2024, , 06/09/2022, Additional history exists Influenza Adult Completed 05/14/2024, 06/16, 06/09/2022, Additional history exists Meningococcal B Vaccine Aged Out No l onger eligible based on patient's age to complete this topic Meningococcal Vaccine Aged Out No shanae meggan eligible based on patient's age to complete this topic Pneumococcal Vaccine: Pediatrics (0 to 5 Years) and At-Risk Patients (6 to 64 Years) Aged Out No longer eligible based on patient's age to complete this topic RSV Immunizations Under 20 Months Aged Out No longer eligible based on patient's age to complete this topic Procedures Procedure Name Priority Date/Time Associated Diagnosis Comments MAMMOGRAM GENERIC (SCAN ORDER) 07/10/2022 CYTOPATH CERV/VAG THIN LAYER Routine 09/24/2018 4:00 PM LOOP CUTTER Health maintenance examination from Last 3 Months or Most Recently Relevant to Health Maintenance Results * MAMMOGRAM GENERIC (07/10/2022) Anatomical Region Laterality Modality Other 07/10/2022 us [facility] Scanned SCANNING Final Resu lt * Cytopath Cerv/Vag Thin Layer (09/24/2018 4:00 PM LOOP CUTTER) 09/24/2018 4:00 PM LOOP CUTTER us Tania Bell MD PATHOLOGY/CYTOLOGY ORDERABLE S Final Result from Last 3 Months or Most Recently Relevant to Health Maintenance Additional Health Concerns Infection Onset Date Last Indicated ESBL - Extended Spectrum Bet a-lactamase Comment:10/09/23 urine (RR) 10/09/2023 10/09/2023 Insurance [employer] Advance Directives * Full Code (Latest Code Status on File) Date Activated Date Inactivated Comments 10/09/2023 2:07 PM 10/10/2023 6:15 PM * Full Code Date Activated Date Inactivated Comments 03/07/2021 2:07 PM 03/08/2021 6:38 PM Care Teams Drafter Landscape Relationship Specialty Start Date End Date Jennifer Kinsey PA-C [id number] [address] PCP - General PHYSICIAN SLEEVE BASTER 01/31/23 Maryanne Gage, RN [address] [place] [address] Calculation Clerk (Ambulatory) REGISTERED NURSE 10/15/24
--- OUTSIDE RECORDS SUMMARY | 2024-11-16 18:01 | XMS_ITS | Encounter Summary ---
Author Organization [facility] Address Formerly [facility] [place] [address] Care Team Providers Care Brazer Repair And Salvage Name Role Phone Latisha HuberNP Primary Care Provider [phone] Ebony Mckeon RN Unavailable [phone] Jennifer Kinsey-C Primary Care Provider [phone] Annie Marques RN Unavailable [phone] Maryanne Gage RN Unavailable [phone] Reason for Referral * Surgical (Routine) - Closed Specialty Diagnoses / Procedures Referred By Contac t Referred To Contact Diagnoses Varicose veins of right lower extremity with pain Procedures Case request operating room: STAB PHLEBECTOMY Jourdan Carlton MD [facility]. [facility] [address] [place] [address] Phone: tel: fax: [place] [address] Phone: tel: Referral ID Status Reason Start Date Expiration Date Visits Re quested Visits Authorized [id number] Closed 07/28/2021 07/05/2022 1 1 Encounter Details Date Type Department Care Team (Late st Contact Info) Description 06/05/2021 Prep for Procedure [place] [facility] [address] [place] [address] Jourdan Carlton MD Three [facility]. [facility] [address] [place], [place] [id number] Social History Tobacco Use Types Packs/Day Years [...] Sex Assigned at Female 10/16/2024 2:10 PM DRILLER'S ASSISTANT Legal Sex Female 9:13 PM DRILLER'S ASSISTANT Gender Identity Female 09/13/2021 1:09 PM DRILLER'S ASSISTANT Sexual Orientation Not on file COVID-19 Exposure Response Date Recorded In the last month, have you been in contact with someone who was confirmed or suspected to have Coronavirus / COVID-19? No / Unsure 06/05/2021 1:43 PM CDT documented as of this encounter Functional [...] Description 04/07/2025 11:45 AM CDT Office Visit [place] [facility] [address] [place] [address] Jourdan Carlton MD [id number] [place] [address] Scheduled Orders Name Type Priority Associated Diagnoses Orde r Schedule Case request operating room: STAB PHLEBECTOMY Case Request Routine Once for 1 Occurrences starting 06/05/2021 until 06/05/2021 documented as of this encounter Visit Diagnoses Diagnosis Varicose veins of lower extremity with pain, right- Primary [facility] current use of anticoagulant Encounter for long-term (current) use of anticoagulants documented in this encounter Additional Health Concerns Infection Onset Date Last Indicated Resolved Time COVID-19 Rule Out 09/13/2021 09/13/2021 09/13/2021 9:37 AM DRILLER'S ASSISTANT COVID-19 Rule Out 09/13/2021 09/13/2021 09/14/2021 9:33 PM DRILLER'S ASSISTANT ESBL - Extended Spectrum Beta-lactamase Comment:10/09/23 urine (RR) 10/09/2023 10/09/2023 Assessment Noted Time PHQ-9 Depression Total Score: 0 05/17/20 11:47 AM CDT documented as of this encounter Care Teams Brazer Repair And Salvage Relationship Specialty Start Date End Date Latisha Huber APNP [address] [address] PCP - General Nurse Practitioner Family 02/20/21 01/30/23 Jennifer Kinsey PA-C [address] [address] PCP - General PHYSICIAN SUPERVISOR URANIUM PROCESSING 01/31/23 Ebony Mckeon RN [address] [place] [address] Director Of Global Marketing (Ambulatory) REGISTERED NURSE 05/02/21 06/13/21 Annie Marques RN [address] [place], [place] [address] Director Of Global Marketing (Ambulatory) REGISTERED NURSE 10/10/23 10/13/23 Maryanne Gage RN [address] [place], [place] [address] Director Of Global Marketing (Ambulatory) REGISTERED NURSE 10/15/24 documented as of this encounter
--- OUTSIDE RECORDS SUMMARY | 2024-11-16 18:01 | XMS_ITS | Referral Summary ---
Author Organization [facility] Address [address] [place] [address] Care Team Providers Care Epidemiologist Name Role Phone Unavailable Primary Care Provider Unavailabl e Source Comments [facility],non-owned Affiliates and Associated Physician Practices is amultiple site organization consisting of ambulatory clinics and hospital sitesin [place], [place], [place] and [place]. This disclosure is being madepursuant to the Care Everywhere program and may not contain all information available regarding this patient. Last updated 18.[facility] Active Problems Problem Noted Date Diagnosed Date Syncope, unspecified syncope type 10/12/2024 Social History Tobacco Use Types Packs/Day Years Used Date Smoking Tobacco: Never Assessed Sex and Gender Information Value Date Recorded Sex Assigned at Not on file Gender Identity Female 04/27/2022 8:53 AM CDT Sexual Orientation Not on file Plan of Treatment Not on file
--- OUTSIDE RECORDS SUMMARY | 2024-11-16 18:01 | XMS_ITS | Clinical Summary ---
Author Organization [facility] Address [address] [place] [address] Care Team Providers Care Automotive Dismantler Name Role Phone Unavailable Primary Care Provider Unavailabl e Source Comments [facility],non-owned Affiliates and Associated Physician Practices is amultiple site organization consisting of ambulatory clinics and hospital sitesin [place], [place], [place] and [place]. This disclosure is being madepursuant to the Care Everywhere program and may not contain all information available regarding this patient. Last updated 18.[facility] Card Capture Services Active Problems Problem Noted Date Diagnosed Date Syncope, unspecified syncope type 10/12/2024 Social History Tobacco Use Types Packs/Day Years Used Date Smoking Tobacco: Never Assessed Sex and Gender Information Value Date Recorded Sex Assigned at Not on file Gender Identity Female 04/27/2022 8:53 AM CDT Sexual Orientation Not on file Plan of Treatment Health Maintenance Due Date Last Done Comments COLOGUARD (AGES 45-75) - COL ON CA SCREENING 1967 COLON MONITORING 1967 COLONOSCOPY - COLON CA SCREENING 1967 CT COLONOGRAPHY - COLON CA SCREENING 1967 Colorectal Cancer Screening 1967 FIT - COLON CA SCREENING 1967 FLEX SIG - COLON CA SCREENING 1967 LIPID TESTING 1967 MAMMOGRAM 1967 PAP SMEAR 1967 HIV SCREENING 1982 HEPATITIS C SCREENING 05/11/1985 DTAP/TDAP/TD VACCINES (1 - Tdap) 1986 HEPATITIS B VACCINE (1 of 3 - 19+ 3-dose series) 1986 PNEUMOCOCCAL VACCINE 50+ (1 of 1 - PCV) 2017 ZOSTER VACCINE (1 of 2) 2017 COVID-19 VACCINE ( - 2023-2 5 season) 2024 INFLUENZA VACCINE (#1) 2024 1, 07/06/2020, 06/18/2019 DEPRESSION SCREENING 09/16/2024 HIB VACCINE Aged Out No longer eligi ble based on patient's age to complete this topic HPV VACCINE Aged Out No longer eligi ble based on patient's age to complete this topic MENINGOCOCCAL (Group B) VACCINE Aged Out No longer eligible b ased on patient's age to complete this topic MENINGOCOCCAL VACCINE Aged Out No shanae meggan eligible based on patient's age to complete this topic
--- OUTSIDE RECORDS SUMMARY | 2024-11-16 18:01 | XMS_ITS | Clinical Summary ---
Author Organization [facility] Address [address] [place] [address] Phone Care Team Providers Care Joint Filler Name Role Phone AmelieJennifer Trey MONTOYA Primary Care Provider [phone] Antony Ron MD Unavailable [phone] Allergies No known active allergies Medications pregabalin (LYRICA) 50 MG Capsule Take 50 mg by mouth 3 times daily. 10/30/2023 Active PARoxetine (PAXIL) 30 MG Tablet Take 30 mg by mouth daily. 08/28/2023 Active apixaban (ELIQUIS) 5 MG Tablet Take 5 mg by mouth 2 times daily. 02/13/2023 Active Topiramate 50 MG Tablet Take 50 mg by mouth in the morning and at bedtime. 02/13/2023 Active omeprazole (PriLOSEC) 20 MG CAPSULE DELAYED RELEASE Take 20 mg by mouth daily. 10/25/2023 Active atorvastatin (LIPITOR) 40 MG Tablet Take 40 mg by mouth nightly. 11/04/2023 Active amitriptyline (ELAVIL) 50 MG Tablet Take 50 mg by mouth daily. 11/07/2023 Active gabapentin (NEURONTIN) 300 MG Capsule 11/21/2023 Active traMADol (ULTRAM) 50 MG Tablet Take 50 mg by mouth every 6 hours as needed. 09/13/2023 Active cyclobenzaprine (FLEXERIL) 10 MG Tablet TAKE 1 TABLET BY MOUTH TWICE DAILY NEEDED FOR MUSCLE PAIN. DO NOT DRIVE OR WORK WHILE ON MED. 08/28/2023 Active magnesium oxide (MAG-OX) 400 (240 Mg) MG Tablet Take 400 mg by mouth. Active multi-vitamins Tablet Take 1 Tablet by mouth daily. Active CRANBERRY PO Take 1 Capsule by mouth. Active Active Problems No known active problems Family History Medical History Relation Name Comments Heart Attack Father Heart Attack Mother Cancer Sister Relation Name Status Comments Brother Alive Child Alive Father Maternal Aunt Alive Mother Sister Social History Tobacco Use Types Packs/Day Years Used Date Smoking Tobacco: Never Smokeless Tobacco: Never Tobacco Cessation:Counseling Given: Not Answered Alcohol Use Standard Drinks/Week Comments Never 0 (1 standard drink = 0.6 oz pur e alcohol) Comments Unknown Sex and Gender Information Value Date Recorded Sex Assigned at Not on file Legal Sex Female 3:37 PM GREENHOUSE OR NURSERY TRANSPLANTER Gender Identity Not on file Sexual Orientation Not on file Last Filed Vital Signs Vital Sign Reading Time Taken Comments Blood Pressure 112/68 11/28/2023 1:59 PM CDT Pulse 73 11/28/2023 1:59 PM CDT Temperature 36.2 C (97.1 F) 11/28/2023 1:59 PM CDT Respiratory Rate 18 11/28/2023 1:59 PM CDT Oxygen Saturation 97% 11/28/2023 1:59 PM CDT Inhaled Oxygen Concentration - - Weight 99.2 kg (218 lb 12.8 oz) 11/28/2023 1:59 PM CDT Height 180.3 cm (5' 11 ) 11/28/2023 1:59 PM CDT Body Mass Index 30.52 11/28/2023 1:59 PM CDT Plan of Treatment Health Maintenance Due Date Last Done Comments Hepatitis C Virus (HCV) Screening 1967 Mammogram 1967 Hepatitis B Immunization (1 of 3 - 19+ 3-dose series) 1986 HPV/Cotest 1997 Colonoscopy 2012 Colorectal Cancer Screening 2012 Cologuard 2017 Immunochemical Fecal Occult Blood 2017 Pneumococcal Immunization (50+ years) (1 of 1 - PCV) 2017 Cervical Cancer Screening (CCS) 09/24/2021 Pap Smear 09/24/2021 09/24/2018, 09/24/2018 SARS-COV-2 Immunization ( season) 2024 07/04/2023, 06/09/2022, 06/08/2022, Additional history exists Respiratory Syncytial Virus (RSV) Immunization (Adult) (1 - 1-dose 75+ series) 2042 DTaP/Tdap/Td Immunization Discontinued 08/05/2018 TdaP Immunization Completed 08/05/2018 Zoster Immunization Completed 10/17/2021, 07/31/2021, 11/17/2019 Influenza Immunization Completed , 07/04/2023, 06/09/2022, Additional history exists Meningococcal Immunization (ACWY) Aged Out No longer eligible based on patient's age to complete this topic Pneumococcal Immunization Combined Aged Out No longer eligible based on patient's age to complete this topic Rotavirus Immunization Aged Out No lo nger eligible based on patient's age to complete this topic Insurance MEDICARE C ESSENCE Care Teams Joint Filler Relationship Specialty Start [place] [address] [place] [address] PCP - General Physician Mortgage Loan Reviewer 11/06/23 [place] [address] [place] [address] Consulting Physician Oncology 11/06/23
--- OUTSIDE RECORDS SUMMARY | 2024-11-16 18:01 | XMS_ITS | Encounter Summary ---
Author Organization [facility] Address [address] [place] [address] Care Team Providers Care Polysomnographic Tech Name Role Phone Tania Bell MD Primary Care Provider [phone] Latisha Huber Primary Care Provider [phone] Hannah Herrera RN Unavailable Unavailab Usha Castillo RN Unavailable [phone] Ebony Mckeon RN Unavailable [phone] Jennifer Kinsey-C Primary Care Provider [phone] Annie Marques RN Unavailable [phone] Maryanne Gage RN Unavailable [phone] Encounter Details Date Type Department Care Team (Late st Contact Info) Description 03/07/2020 Prep for Procedure [facility] [address] [place] [address] Ene Walters MD [address] [place] [address] Social History Tobacco Use Types Packs/Day Years Used Date Smoking Tobacco: Never Smokeless Tobacco: Never Alcohol Use Standard Drinks/Week Comments Yes 1 (1 standard drink = 0.6 oz pur e alcohol) Socially, 1x per week PHQ-2 Answer Date Recorded PHQ-2 Score 0 01/26/2019 Comments No Sex and Gender Information Value Date Recorded Sex Assigned at Female 10/16/2024 2:10 PM GEOLOGICAL SCIENCE TEACHER Legal Sex Female 9:13 PM GEOLOGICAL SCIENCE TEACHER Gender Identity Female 09/13/2021 1:09 PM GEOLOGICAL SCIENCE TEACHER Sexual Orientation Not on file COVID-19 Exposure Response Date Recorded In the last month, have you been in contact with someone who was confirmed or suspected to have Coronavirus / COVID-19? No / Unsure 03/10/2020 12:17 PM CDT documented as of this encounter Plan of Treatment Upcoming Encounters Date Type Department Care Team (Late st Contact Info) Description 04/07/2025 11:45 AM CDT Office Visit [place] [facility] [address] [place] [address] Jourdan Carlton MD [address] [address] documented as of this encounter Visit Diagnoses Not on filedocumented in this encounter Additional Health Concerns Infection Onset Date Last Indicated Resolved Time COVID-19 Rule Out 03/08/2020 03/08/2020 03/09/2020 4:39 PM CDT COVID-19 Rule Out 09/13/2021 09/13/2021 09/13/2021 9:37 AM GEOLOGICAL SCIENCE TEACHER COVID-19 Rule Out 09/13/2021 09/13/2021 09/14/2021 9:33 PM GEOLOGICAL SCIENCE TEACHER ESBL - Extended Spectrum Beta-lactamase Comment:10/09/23 urine (RR) 10/09/2023 10/09/2023 documented as of this encounter Care Teams Polysomnographic Tech Relationship Specialty Start Date End Date Tania Bell MD PCP - General INTERNAL MEDICINE 07/25/18 02/19/21 Latisha Huber APNP [address] [address] PCP - General Nurse Practitioner Family 02/20/21 01/30/23 Jennifer Kinsey, REBECCA [address] [id number] PCP - General PHYSICIAN MATERIAL REQUIREMENTS PLANNING MANAGER 01/31/23 Hannah Herrera, ship laborer (Ambulatory) REGISTERED NURSE 03/08/21 03/23/21 Usha Braun RN [address] [place], [place] [address] Lube Technician (Ambulatory) REGISTERED NURSE 03/24/21 04/10/21 Ebony Mckeon RN [address] [place], [place] [id number] Lube Technician (Ambulatory) REGISTERED NURSE 05/02/21 06/13/21 Annie Marques, RN [address] [place], [place] [id number] Lube Technician (Ambulatory) REGISTERED NURSE 10/10/23 10/13/23 Maryanne Gage RN [address] [place], [place] [id number] Lube Technician (Ambulatory) REGISTERED NURSE 10/15/24 documented as of this encounter
--- OUTSIDE RECORDS SUMMARY | 2024-11-16 18:01 | XMS_ITS | Continuity of Care Document ---
Author Organization [facility] Address [address] [place] [address] Phone Care Team Providers Care Software Design Analyst Name Role Phone Administrative, Provider Unavailable Unavail able Procedures Procedure Date Xray Copy Medical Record Copy Medical Record Copy Per Page Office/outpatient visit,[facility] 2010 Drain/inject major jointor bursa 2010 Kenalog Triamcinolone acetonide inj Ultrasonic guide needle plcmnt S/I X-ray exam of hip, 1 view X-ray exam of pelvis, 1-2 views 011 Advance Directives Directive Yes / No Effective Date File Name No Information Encounters Encounter Description Practice Location Reason(s) For Visit Diagnoses Date Provider Providers Copied on Encounter [facility], [address], [id number], [place] tel:[phone] [facility] No Information 2 Administrative Provider. [address] [facility] [address] [facility], [address], [place], [place], [id number], [place]. tel:[phone] [facility], [address], [id number], [place] tel:[phone] phorus No Information 2 Administrative Provider. [address] [facility], [facility] [address], [place], [place], [id number], [place]. tel:[phone] Referring Provider: Antony Rogel, [address] [place] [address], [place], [address]. tel:[phone] Office/outpa tient visit,new, [facility], [address] [address], [place], [place], [id number], [place] tel:[phone] [facility] JOINT PAIN-PELVISE NTHESOPATHY OF HIP No Information Referring Provider: Antony Rogel, [address] [place] [address], [place], [address]. tel:[phone] Family History Family Member Type Diagnosis Age At Onset No Information Payers Payer name Insurance type Covered libertarian ID Authoriza tion(s) No Information Social History Type Description Quantity Date Captured Comments Sex Female Smoking Status No Information Chief Complaint And Reason For Visit No Information Reason For Referral Reason For Referral No Information History Of Present Illness Encounter Date Complaint History Of Prese nt Illness No Information Functional Status Date Functional Assessmen t No Information Instructions Date Instruction Additional Infor mation No Information Assessments Type Assessment Date No Information Patient Care Teams Name Effective Dates (start - stop) Status Members No Information
--- OUTSIDE RECORDS SUMMARY | 2024-11-16 18:01 | XMS_ITS | Encounter Summary ---
Author Organization [facility] Address [address] [place] [address] Care Team Providers Care Sammying Machine Operator Name Role Phone Latisha Huber Primary Care Provider [phone] Jennifer KinseyC Primary Care Provider [phone] Annie Marques RN Unavailable [phone] Maryanne Gage RN Unavailable [phone] Encounter Details Date Type Department Care Team (Late st Contact Info) Description 01/16/2022 Hospital Orders Only [facility] [place] [address] [id number] Dafne Dey APNP [address] [place] [address] Social History Tobacco Use Types Packs/Day Years Used Date Smoking Tobacco: Never Smokeless Tobacco: Never Alcohol Use Standard Drinks/Week Comments Yes 1 (1 standard drink = 0.6 oz pur e alcohol) Socially, 1x per week PHQ-2 Answer Date Recorded PHQ-2 Score - If the patient scores above 3, please move on to questions 3-9 0 12/14/2021 Comments No Sex and Gender Information Value Date Recorded Sex Assigned at Female 10/16/2024 2:10 PM FORGING OPERATOR Legal Sex Female 9:13 PM FORGING OPERATOR Gender Identity Female 09/13/2021 1:09 PM FORGING OPERATOR Sexual Orientation Not on file COVID-19 Exposure Response Date Recorded In the last 10 days, have yo u been in contact with someone who was confirmed or suspected to have Coronavirus/COVID-19? No / Unsure 01/16/2022 11:06 AM CDT documented as of this encounter [...] Description 04/07/2025 11:45 AM CDT [facility] [address] [place] [address] Jourdan Carlton MD [facility]. [address] [place], [place] [id number] documented as of this encounter Visit Diagnoses Not on filedocumented in this encounter Additional Health Concerns Infection Onset Date Last Indicated Resolved Time ESBL - Extended Spectrum Bet a-lactamase Comment:10/09/23 urine (RR) 10/09/2023 10/09/2023 Assessment Noted Time PHQ-9 Depression Total Score: 0 12/15/19 22 1:00 PM CDT documented as of this encounter Care Teams Sammying Machine Operator Relationship Specialty Start Date End Date Latisha Huber APNP [address] [address] PCP - General Nurse Practitioner Family 02/20/21 01/30/23 Jennifer Kinsey PA-C [address] [address] PCP - General PHYSICIAN ATHLETIC TURF WORKER 01/31/23 Annie Marques RN [address] [place], [place] [address] Seafood Harvester (Ambulatory) REGISTERED NURSE 10/10/23 10/13/23 Maryanne Gage RN [address] [place], [place] [id number] Seafood Harvester (Ambulatory) REGISTERED NURSE 10/15/24 documented as of this encounter
--- OUTSIDE RECORDS SUMMARY | 2024-11-16 18:01 | XMS_ITS | Encounter Summary ---
Author Organization [facility] Address [address] [place] [address] Care Team Providers Care Actuary Name Role Phone Tania Bell MD Primary Care Provider [phone] Latisha Huber Primary Care Provider [phone] Hannah Herrera RN Unavailable Unavailab Usha Castillo RN Unavailable [phone] Ebony Mckeon RN Unavailable [phone] Jennifer Kinsey-C Primary Care Provider [phone] Annie Marques RN Unavailable [phone] Maryanne Gage RN Unavailable [phone] Encounter Details Date Type Department Care Team (Late st Contact Info) Description 03/04/2020 Prep for Procedure [facility] [address] [place] [address] Ene Walters MD [address] [place] [address] Social History Tobacco Use Types Packs/Day Years Used Date Smoking Tobacco: Never Smokeless Tobacco: Never Alcohol Use Standard Drinks/Week Comments Yes 0 (1 standard drink = 0.6 oz pur e alcohol) Socially, 1x per week PHQ-2 Answer Date Recorded PHQ-2 Score 0 01/26/2019 Comments No Sex and Gender Information Value Date Recorded Sex Assigned at Female 10/16/2024 2:10 PM ERECTING ENGINEER Legal Sex Female 9:13 PM ERECTING ENGINEER Gender Identity Female 09/13/2021 1:09 PM ERECTING ENGINEER Sexual Orientation Not on file COVID-19 Exposure Response Date Recorded In the last month, have you been in contact with someone who was confirmed or suspected to have Coronavirus / COVID-19? No / Unsure 03/07/2020 2:33 PM CDT documented as of this encounter Plan of Treatment Upcoming Encounters Date Type Department Care Team (Late st Contact Info) Description 04/07/2025 11:45 AM CDT [facility] [address] [place] [address] Jourdan Carlton MD [address] [address] documented as of this encounter Results * PRE-SURGICAL/PRE-PROCEDURE CORONAVIRUS (COVID 19) (03/08/2020 10:01 AM CDT) CORONAVIRUS SARS COV 2 PCR (RESP) NOT DETECTED NOT DETECTED 03/09/2020 4:38 PM CDT [facility] Comment: A Not Detected (negative) test result for this test means that SARS- CoV-2 RNA was not present in the specimen above the limit of detection. A negative result does not rule out the possibility of COVID-19 and should not be used as the sole basis for treatment or patient management decisions. If COVID-19 is still suspected, based on exposure history together with other clinical findings, re-testing should be considered in consultation with public health authorities. Laboratory test results should always be considered in the context of clinical observations and epidemiological data in making a final diagnosis and patient management decisions. Please review the Fact Sheets and FDA authorized labeling available for health care providers and patients using the following websites: https://www.[employer]/home/Covid-19/HCP/NAAT/fact-sheet2 https://www.[employer]/home/Covid-19/Patients/NAAT/ fact-sheet2 This test has been authorized by the FDA under an Emergency Use Authorization (EUA) for use by authorized laboratories. Due to the current public health emergency, [facility] is receiving a high volume of samples from a wide variety of swabs and media for COVID-19 testing. In order to serve patients during this public health crisis, samples from appropriate clinical sources are being tested. Negative test results derived from specimens received in non-commercially manufactured viral collection and transport media, or in media and sample collection kits not yet authorized by FDA for COVID-19 testing should be cautiously evaluated and the patient potentially subjected to extra precautions such as additional clinical monitoring, including collection of an additional specimen. Methodology: Nucleic Acid Amplification Test (NAAT) includes PCR or TMA Additional information about COVID-19 can be found at the [facility] website: www.[employer]/Covid19. Test performed at [facility] [address] [place] [address] Director: ACE PITTS DO,MPH NASOPHARYNGEAL SWAB / Unknown 03/08/2020 10:01 AM CDT us Ene Walters MD MICROBIOLOGY - GENERAL ORDER MELINDA Final Result [facility] [id number] [place] [address] [[email or web address]] documented in this encounter Visit Diagnoses Diagnosis Preop testing- Primary Preoperative examination, unspecified documented in this encounter Additional Health Concerns Infection Onset Date Last Indicated Resolved Time COVID-19 Rule Out 03/08/2020 03/08/2020 03/09/2020 4:39 PM CDT COVID-19 Rule Out 09/13/2021 09/13/2021 09/13/2021 9:37 AM ERECTING ENGINEER COVID-19 Rule Out 09/13/2021 09/13/2021 09/14/2021 9:33 PM ERECTING ENGINEER ESBL - Extended Spectrum Beta-lactamase Comment:10/09/23 urine (RR) 10/09/2023 10/09/2023 documented as of this encounter Care Teams Actuary Relationship Specialty Start Date End Date Tania Bell MD PCP - General INTERNAL MEDICINE 07/25/18 02/19/21 Latisha Huber APNP [address] [facility] [place] [address] [place] [address] PCP - General Nurse Practitioner Family 02/20/21 01/30/23 Jennifer Kinsey PA-C [address] [address] PCP - General PHYSICIAN BOOT TURNER 01/31/23 Hannah Herrera, farmworker grain (Ambulatory) REGISTERED NURSE 03/08/21 03/23/21 Usha Braun, RN [address] [place], [place] [address] Director Of Sales And Marketing (Ambulatory) REGISTERED NURSE 03/24/21 04/10/21 Ebony Mckeon RN [address] [place], [place] [id number] Director Of Sales And Marketing (Ambulatory) REGISTERED NURSE 05/02/21 06/13/21 Annie Marques, RN [address] [place], [place] [address] Director Of Sales And Marketing (Ambulatory) REGISTERED NURSE 10/10/23 10/13/23 Maryanne Gage RN [address] [place], [place] [address] Director Of Sales And Marketing (Ambulatory) REGISTERED NURSE 10/15/24 documented as of this encounter
--- OUTSIDE RECORDS SUMMARY | 2024-11-16 18:01 | XMS_ITS | Continuity of Care Document ---
Author Organization [facility] Address [address] [place] [address] Phone Care Team Providers Care Records Clerk Name Role Phone Robert Fitzgerald MD Unavailable Unavailable Procedures Procedure Date INJ PARAVERT F JNT L/S 1 LEV DEPO-MEDROL 80MG SURGICAL TRAY INJ SPINE LUM/SAC W/ IMAGING GUIDANCE De SURGICAL TRAY LOW OSMOLAR CONTRAST (200 TO 299 MG IODI NE) DEPO-MEDROL 80MG MRI, LUMBAR SPINE W/O CONTRAST 19 Advance Directives Directive Yes / No Effective Date File Name No Information Encounters Encounter Description Practice Location Reason(s) For Visit Diagnoses Date Provider Providers Copied on Encounter [facility], [address] [place] [address], [id number], tel:[phone] [facility] No Information Amilcar Jones. [address] [place], [place], [id number], [place]. tel:[phone] Referring Provider: [address], [place], [address]. tel:[phone] [facility], [address], [place], [place], [id number], tel:[phone] [facility] No Information Amilcar Jones. [address], [place], [place], [id number], [place]. tel:[phone] Referring Provider: [address], [place], [address]. tel:[phone] [facility], [address], [place], [place], [id number], tel:[phone] [facility] No Information Jory Leon. [address], [place], [place], [address], [place]. tel:[phone] Referring Provider: Mitch Noonan, [address], [place], [address]. tel:[phone] Family History Family Member Type Diagnosis Age At Onset No Information Payers Payer name Insurance type Covered green party ID Authoriza tion(s) MEDICARE [id number] Social History Type Description Quantity Date Captured [...]
--- OUTSIDE RECORDS SUMMARY | 2024-11-16 18:01 | XMS_ITS | Encounter Summary ---
Author Organization [facility] Address [facility] [place] [address] Care Team Providers Care Drilling Supervisor Name Role Phone Latisha HuberNP Primary Care Provider [phone] Jennifer Kinsey-C Primary Care Provider [phone] Annie Marques RN Unavailable [phone] Maryanne Gage RN Unavailable [phone] Reason for Referral * Surgical (Routine) - Closed Specialty Diagnoses / Procedures Referred By Contguanaco t Referred To Contact Diagnoses Varicose veins of left lower extremity with pain Procedures Case request operating room: STAB PHLEBECTOMY Jourdan Carlton MD [facility]. [facility] [address] [place] [address] Phone: tel: fax: [facility] [place] [address] Phone: tel: Referral ID Status Reason Start Date Expiration Date Visits Re quested Visits Authorized [id number] Closed 10/13/2021 10/13/2021 1 1 OF TECHNOLOGY Encounter Details Date Type Department Care Team (Late st Contact Info) Description 08/22/2021 Prep for Procedure [facility], [facility] [address] [place] [address] Jourdan Carlton MD [address] [address] Social History Tobacco Use Types Packs/Day Years [...] Sex Assigned at Female 10/16/2024 2:10 PM VP OF TECHNOLOGY Legal Sex Female 9:13 PM VP OF TECHNOLOGY Gender Identity Female 09/13/2021 1:09 PM VP OF TECHNOLOGY Sexual Orientation Not on file COVID-19 Exposure Response Date Recorded In the last month, have you been in contact with someone who was confirmed or suspected to have Coronavirus / COVID-19? Unable to assess 08/16/2021 12:01 PM VP OF TECHNOLOGY documented as of this encounter Functional Status [...] Assessment Author Status No 03/08/2021 6:46 PM BUCKT Cielo Solo RN Active documented as of [...] Description 04/07/2025 11:45 AM CDT Office Visit [facility] [address] [place] [phone] Jourdan Carlton MD [facility] [address] [place] [address] Scheduled Orders Name Type Priority Associated Diagnoses Orde r Schedule Case request operating room: STAB PHLEBECTOMY Case Request Routine Once for 1 Occurrences starting 08/22/2021 until 08/22/2021 documented as of this encounter Visit Diagnoses 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- Primary Long-term (current) use of anticoagulants Varicose veins of lower extremity with pain, left documented in this encounter Additional Health Concerns Infection Onset Date Last Indicated Resolved Time COVID-19 Rule Out 09/13/2021 09/13/2021 09/13/2021 9:37 AM VP OF TECHNOLOGY COVID-19 Rule Out 09/13/2021 09/13/2021 09/14/2021 9:33 PM VP OF TECHNOLOGY ESBL - Extended Spectrum Beta-lactamase Comment:10/09/23 urine (RR) 10/09/2023 10/09/2023 Assessment Noted Time PHQ-9 Depression Total Score: 0 05/17/20 21 11:47 AM CDT documented as of this encounter Care Teams Drilling Supervisor Relationship Specialty Start Date End Date Latisha Huber APNP [address] [address] PCP - General Nurse Practitioner Family 02/20/21 01/30/23 Jennifer Kinsey, CHARLEYC [address] [address] PCP - General PHYSICIAN VICE PRESIDENT BIOSTATISTICS 01/31/23 Annie Marques RN [facility] [place] [address] Motor Installer (Ambulatory) REGISTERED NURSE 10/10/23 10/13/23 Maryanne Gage, RN [address] [place] [address] Motor Installer (Ambulatory) REGISTERED NURSE 10/15/24 documented as of this encounter
--- OUTSIDE RECORDS SUMMARY | 2024-11-16 18:01 | XMS_ITS | Patient Health Summary ---
Author Organization [facility] Address [address] [place] [address] Care Team Providers Care Sustainability Engineer Name Role Phone Unavailable Primary Care Provider Unavailabl e Note from [facility],non-owned Affiliates and Associated Physician Practices is amultiple site organization consisting of ambulatory clinics and hospital sitesin [place], [place], [place] and [place]. This disclosure is being madepursuant to the Care Everywhere program and may not contain all information available regarding this patient. Last updated 18.[facility] Active Problems Problem Noted Date Diagnosed Date Syncope, unspecified syncope type 10/12/2024 Social History Tobacco Use Types Packs/Day Years Used Date Smoking Tobacco: Never Assessed Sex and Gender Information Value Date Recorded Sex Assigned at Not on file Gender Identity Female 04/27/2022 8:53 AM CDT Sexual Orientation Not on file
--- NOTE | 2024-11-16 22:37 | ECG_ITS ---
Test Date: 2024-11-16 23:34:59 Measurements Intervals Covel Rate: 92 P: 34 LA: 171 QRS: -37 QRSD: 117 T: 123 QT: 371 QTc: 460 Interpretive Statements SINUS RHYTHM MARKED LEFT AXIS DEVIATION [QRS AXIS < -30] LEFT VENTRICULAR HYPERTROPHY AND ST-T CHANGE [VOLTAGE CRITERIA PLUS ST/T ABNORMALITY] Compared to ECG 10/13/2024 01:41:24 Left ventricular hypertrophy now present Electronically Signed On 11-18-2024 09:34:37 PARTS EXPEDITER by Patricio Stern M.D.
--- OUTSIDE RECORDS SUMMARY | 2024-11-16 22:53 | XMS_ITS | Encounter Summary ---
Author Organization [facility] Address [place] [address] Care Team Providers Care Cardiology Associate Name Role Phone Latisha HuberNP Primary Care Provider [phone] Ebony Mckeon RN Unavailable [phone] Jennifer Kinsey-C Primary Care Provider [phone] Annie Marques RN Unavailable [phone] Maryanne Gage RN Unavailable [phone] Reason for Referral * Surgical (Routine) - Closed Specialty Diagnoses / Procedures Referred By Contac t Referred To Contact Diagnoses Varicose veins of right lower extremity with pain Procedures Case request operating room: STAB PHLEBECTOMY Jourdan Carlton MD [facility]. [facility] [[email or web address]] [address] [place] [address] Phone: tel: fax: [place] [address] Phone: tel: Referral ID Status Reason Start Date Expiration Date Visits Re quested Visits Authorized [id number] Closed 07/28/2021 07/05/2022 1 1 Encounter Details Date Type Department Care Team (Late st Contact Info) Description 06/05/2021 Prep for Procedure [facility], [facility] [[email or web address]] [address] [place] [address] Jourdan Carlton MD [facility]. [facility] [[email or web address]] [address] [place], [place] [id number] Social History Tobacco Use Types Packs/Day Years [...] Sex Assigned at Female 10/16/2024 2:10 PM SHOVEL LOG LOADER OPERATOR Legal Sex Female 9:13 PM SHOVEL LOG LOADER OPERATOR Gender Identity Female 09/13/2021 1:09 PM SHOVEL LOG LOADER OPERATOR Sexual Orientation Not on file COVID-19 [...] Description 04/07/2025 11:45 AM CDT Office Visit [facility] [address] [place] [address] Jourdan Carlton MD [address] [place] [address] Scheduled Orders Name Type Priority Associated Diagnoses Orde r Schedule Case request operating room: STAB PHLEBECTOMY Case Request Routine Once for 1 Occurrences starting 06/05/2021 until 06/05/2021 documented as of this encounter Visit Diagnoses Diagnosis Varicose veins of lower extremity with pain, right- Primary snf current use of anticoagulant Encounter for long-term (current) use of anticoagulants documented in this encounter Additional Health Concerns Infection Onset Date Last Indicated Resolved Time COVID-19 Rule Out 09/13/2021 09/13/2021 09/13/2021 9:37 AM SHOVEL LOG LOADER OPERATOR COVID-19 Rule Out 09/13/2021 09/13/2021 09/14/2021 9:33 PM SHOVEL LOG LOADER OPERATOR ESBL - Extended Spectrum Beta-lactamase Comment:10/09/23 urine (RR) 10/09/2023 10/09/2023 Assessment Noted Time PHQ-9 Depression Total Score: 0 05/17/20 11:47 AM CDT documented as of this encounter Care Teams Cardiology Associate Relationship Specialty Start Date End Date Latisha Huber APNP [address] [address] PCP - General Nurse Practitioner Family 02/20/21 01/30/23 Jennifer Kinsey PA-C [address] [address] PCP - General PHYSICIAN CLINICAL NURSING COORDINATOR 01/31/23 Ebony Mckeon RN [address] [place] [address] Nitroglycerin Neutralizer (Ambulatory) REGISTERED NURSE 05/02/21 06/13/21 Annie Marques RN [address] [place], [place] [address] Nitroglycerin Neutralizer (Ambulatory) REGISTERED NURSE 10/10/23 10/13/23 Maryanne Gage RN [address] [place], [place] [address] Nitroglycerin Neutralizer (Ambulatory) REGISTERED NURSE 10/15/24 documented as of this encounter
--- OUTSIDE RECORDS SUMMARY | 2024-11-16 22:53 | XMS_ITS | Encounter Summary ---
Author Organization [facility] Address [facility] [place] [address] Care Team Providers Care Buggy Loader Name Role Phone Latisha Huber APNP Primary Care Provider [phone] Ebony Mckeon RN Unavailable [phone] Jennifer Kinsey-C Primary Care Provider [phone] Annie Marques RN Unavailable [phone] Maryanne Gage RN Unavailable [phone] Reason for Referral * Surgical (Routine) - Closed Specialty Diagnoses / Procedures Referred By Contac t Referred To Contact Diagnoses Varicose veins of right lower extremity with pain Procedures Case request operating room: GREATER SAPHENOUS VEIN STRIPPING WITH HIGH LIGATIONSTAB PHLEBECTOMY Jourdan Carlton MD [facility]. [facility] [address] [place] [address] Phone: tel: fax: [place] [address] Phone: tel: Referral ID Status Reason Start Date Expiration Date Visits Re quested Visits Authorized [id number] Closed 05/26/2021 06/18/2022 1 1 Encounter Details Date Type Department Care Team (Late st Contact Info) Description 05/19/2021 Prep for Procedure [facility] n [facility], [facility] [address] [place] [address] Jourdan Carlton MD [facility]. [facility] [address] [place], [place] [id number] Social History Tobacco Use Types Packs/Day Years [...] Sex Assigned at Female 10/16/2024 2:10 PM OPTIMIZATION SPECIALIST Legal Sex Female 9:13 PM OPTIMIZATION SPECIALIST Gender Identity Female 09/13/2021 1:09 PM OPTIMIZATION SPECIALIST Sexual Orientation Not on file COVID-19 Exposure [...] Description 04/07/2025 11:45 AM CDT Office Visit [facility] [address] [place] [address] Jourdan Carlton MD [address] [address] Scheduled Orders Name Type Priority Associated Diagnoses [...] Rule Out 09/13/2021 09/13/2021 09/13/2021 9:37 AM OPTIMIZATION SPECIALIST COVID-19 Rule Out 09/13/2021 09/13/2021 09/14/2021 9:33 PM OPTIMIZATION SPECIALIST ESBL - Extended Spectrum Beta-lactamase Comment:10/09/23 urine (RR) 10/09/2023 10/09/2023 Assessment Noted Time PHQ-9 Depression Total Score: 0 05/17/20 11:47 AM CDT documented as of this encounter Care Teams Buggy Loader Relationship Specialty Start Date End Date Latisha Huber APNP [address] [address] PCP - General Nurse Practitioner Family 02/20/21 01/30/23 Jennifer Kinsey PA-C [address] [address] PCP - General PHYSICIAN DIRECTOR OF SAFETY 01/31/23 Ebony Mckeon RN [address] [place] [address] Customer Facilities Supervisor (Ambulatory) REGISTERED NURSE 05/02/21 06/13/21 Annie Marques RN [address] [place] [address] Customer Facilities Supervisor (Ambulatory) REGISTERED NURSE 10/10/23 10/13/23 Maryanne Gage RN [address] [place] [address] Customer Facilities Supervisor (Ambulatory) REGISTERED NURSE 10/15/24 documented as of this encounter
--- OUTSIDE RECORDS SUMMARY | 2024-11-16 22:53 | XMS_ITS | Referral Summary ---
Author Organization [facility] Address [address] [place] [address] Care Team Providers Care Long Wall Mining Machine Helper Name Role Phone Unavailable Primary Care Provider Unavailabl e Source Comments [facility],non-owned Affiliates and Associated Physician Practices is amultiple site organization consisting of ambulatory clinics and hospital sitesin [place], [place], [place] and [place]. This disclosure is being madepursuant to the Care Everywhere program and may not contain all information available regarding this patient. Last updated 18.[facility] Active Problems Problem Noted Date Diagnosed [...]
--- OUTSIDE RECORDS SUMMARY | 2024-11-16 22:53 | XMS_ITS | Encounter Summary ---
Author Organization [facility] Address [address] [place] [address] Care Team Providers Care Seamark Advanced Operator Maintainer Name Role Phone Tania Bell MD Primary Care Provider [phone] Latisha Huber Primary Care Provider [phone] Hannah Herrera RN Unavailable Unavailab Usha Castillo RN Unavailable [phone] Ebony Mckeon RN Unavailable [phone] Jennifer Kinsey-C Primary Care Provider [phone] Annie Marques RN Unavailable [phone] Maryanne Gage RN Unavailable [phone] Encounter Details Date Type Department Care Team (Late st Contact Info) Description 03/04/[address] [facility] [address] [place] [address] Ene Walters MD [address] [place] [address] Social History Tobacco Use Types Packs/Day Years Used Date Smoking Tobacco: Never Smokeless Tobacco: Never Alcohol Use Standard Drinks/Week Comments Yes 0 (1 standard drink = 0.6 oz pur e alcohol) Socially, 1x per week PHQ-2 Answer Date Recorded PHQ-2 Score 0 01/26/2019 Comments No Sex and Gender Information Value Date Recorded Sex Assigned at Female 10/16/2024 2:10 PM CAPACITOR PACK PRESS OPERATOR Legal Sex Female 9:13 PM CAPACITOR PACK PRESS OPERATOR Gender Identity Female 09/13/2021 1:09 PM CAPACITOR PACK PRESS OPERATOR Sexual Orientation Not on file COVID-19 [...] Description 04/07/2025 11:45 AM CDT [facility] [address] [place] [address] Jourdan Carlton MD [address] [address] documented as of this encounter Results * PRE-SURGICAL/PRE-PROCEDURE CORONAVIRUS (COVID 19) (03/08/2020 10:01 AM CDT) CORONAVIRUS SARS COV 2 PCR (RESP) NOT DETECTED NOT DETECTED 03/09/2020 4:38 PM CDT [facility] Comment: A Not Detected (negative) test result [...] providers and patients using the following websites: https://www.[employer]/home/Covid-19/HCP/NAAT/fact-sheet2 https://www.[employer]/home/Covid-19/Patients/NAAT/ fact-sheet2 This test has been authorized by the FDA under an Emergency Use Authorization (EUA) for use by authorized laboratories. Due to the current public health emergency, [facility] is receiving a high volume of samples [...] about COVID-19 can be found at the [facility] website: www.[employer]/Covid19. Test performed at [facility] [address] [place] [address] Director: ACE PITTS DO,MPH NASOPHARYNGEAL SWAB / Unknown 03/08/2020 10:01 AM CDT us Ene Walters MD MICROBIOLOGY - GENERAL ORDER MELINDA Final Result [facility] [id number] [place] [address] documented in this encounter Visit Diagnoses Diagnosis Preop testing- Primary Preoperative examination, unspecified documented in this encounter Additional Health Concerns Infection Onset Date Last Indicated Resolved Time COVID-19 Rule Out 03/08/2020 03/08/2020 03/09/2020 4:39 PM CDT COVID-19 Rule Out 09/13/2021 09/13/2021 09/13/2021 9:37 AM CAPACITOR PACK PRESS OPERATOR COVID-19 Rule Out 09/13/2021 09/13/2021 09/14/2021 9:33 PM CAPACITOR PACK PRESS OPERATOR ESBL - Extended Spectrum Beta-lactamase Comment:10/09/23 urine (RR) 10/09/2023 10/09/2023 documented as of this encounter Care Teams Seamark Advanced Operator Maintainer Relationship Specialty Start Date End Date Tania Bell MD PCP - General INTERNAL MEDICINE 07/25/18 02/19/21 Latisha Huber APNP [address] [facility] [address] [place] [address] PCP - General Nurse Practitioner Family 02/20/21 01/30/23 Jennifer Kinsey PA-C [address] [address] PCP - General PHYSICIAN MARINE TECHNICIAN 01/31/23 Hannah Herrera, geropsychologist (Ambulatory) REGISTERED NURSE 03/08/21 03/23/21 Usha Braun, RN [address] [place], [place] [address] Adzing And Boring Machine Helper (Ambulatory) REGISTERED NURSE 03/24/21 04/10/21 Ebony Mckeon RN [address] [place], [place] [id number] Adzing And Boring Machine Helper (Ambulatory) REGISTERED NURSE 05/02/21 06/13/21 Annie Marques, RN [address] [place], [place] [id number] Adzing And Boring Machine Helper (Ambulatory) REGISTERED NURSE 10/10/23 10/13/23 Maryanne Gage RN [address] [place], [place] [address] Adzing And Boring Machine Helper (Ambulatory) REGISTERED NURSE 10/15/24 documented as of this encounter
--- OUTSIDE RECORDS SUMMARY | 2024-11-16 22:53 | XMS_ITS | Encounter Summary ---
Author Organization [facility] Address [facility] [place] [address] Care Team Providers Care Line Service Attendant Name Role Phone Jennifer Kinsey PA-C Primary Care Provider [phone] Maryanne Gage RN Unavailable [phone] Reason for Visit * Reason Onset Date Comments Hospital Follow Up 11/16/2024 Call to [facility]. Encounter Details Date Type Department Care Team (Late st Contact Info) Description 11/16/2024 Patient Outreach [facility] Family & Internal Medicine [facility] [address] [place] [address] Maryanne Gage, RN [address] [place] [address] Hospital Follow Up (Call to [facility] Social History Tobacco Use Types Packs/Day Years Used Date Smoking Tobacco: Never Smokeless Tobacco: Never Comments:na Alcohol Use Standard Drinks/Week Comments Yes 1 (1 standard drink = 0.6 oz pur e alcohol) Socially, 1x per week [facility] Utilities Answer Date Recorded In the past [...] place to sleep or slept in a fpc (including now)? No 10/09/2023 Comments No Sex and Gender Information Value Date Recorded Sex Assigned at Female 10/16/2024 2:10 PM WELT ROUGHER Legal Sex Female 9:13 PM WELT ROUGHER Gender Identity Female 09/13/2021 1:09 PM WELT ROUGHER Sexual Orientation Not on file documented as of this encounter Functional Status * Are you deaf or do you have serious difficulty hearing Answer Date of Assessment Author Status No 10/09/2023 6:09 PM WELT ROUGHER Salina Ignacio RN Active * Are you [...] Description 04/07/2025 11:45 AM CDT Office Visit [facility] [address] [place] [phone] Jourdan Carlton MD [address] [address] documented as of this encounter Visit Diagnoses Not on filedocumented in this encounter Additional Health Concerns Infection Onset Date Last Indicated Resolved Time ESBL - Extended Spectrum Bet a-lactamase Comment:10/09/23 urine (RR) 10/09/2023 10/09/2023 Assessment Noted Time PHQ-9 Depression Total Score: 0 02/14/20 4:31 PM CDT documented as of this encounter Care Teams Line Service Attendant Relationship Specialty Start Date End Date Jennifer Kinsey PA-C [address] [address] PCP - General PHYSICIAN AMMUNITION STOREKEEPER 01/31/23 Maryanne Gage, RN [address] [place] [address] Used Car Lot Attendant (Ambulatory) REGISTERED NURSE 10/15/24 documented as of this encounter
--- OUTSIDE RECORDS SUMMARY | 2024-11-16 22:53 | XMS_ITS | Continuity of Care Document ---
Author Organization [facility] Address [address] [place] [address] Phone Care Team Providers Care Arboriculture Instructor Name Role Phone Administrative, Provider Unavailable Unavail able Procedures Procedure Date Xray Copy Medical Record Copy Medical Record Copy Per Page Office/outpatient visit,[facility] 2010 Drain/inject major jointor bursa 2010 Kenalog Triamcinolone acetonide inj Ultrasonic guide needle plcmnt S/I X-ray exam of hip, 1 view X-ray exam of pelvis, 1-2 views 011 Advance Directives Directive Yes / No Effective Date File Name No Information Encounters Encounter Description Practice Location Reason(s) For Visit Diagnoses Date Provider Providers Copied on Encounter [email or web address], [address], [id number], [place] tel:[phone] [email or web address] No Information 2 Administrative Provider. [address] [facility], [address], [place], [place], [id number], [place]. tel:[phone] [email or web address], [address], [id number], [place] tel:[phone] [employer] No Information 2 Administrative Provider. [address] [facility], [facility] [address], [place], [place], [id number], [place]. tel:[phone] Referring Provider: Antony Rogel, [address] [place] [address], [place], [address]. tel:[phone] Office/outpa tient visit,new, [facility], [address] [address], [place], [place], [id number], [place] tel:[phone] [facility] No Information Referring Provider: Antony Rogel, [address] [place] [address], [place], [address]. tel:[phone] Family History Family Member Type Diagnosis Age At Onset No Information Payers Payer name Insurance type Covered constitution party ID Authoriza tion(s) No Information Social History [...]
--- OUTSIDE RECORDS SUMMARY | 2024-11-16 22:53 | XMS_ITS | Encounter Summary ---
Author Organization [facility] Address [facility] [place] [address] Care Team Providers Care Traveling Storekeeper Name Role Phone Latisha HuberNP Primary Care Provider [phone] Jennifer Kinsey-C Primary Care Provider [phone] Annie Marques RN Unavailable [phone] Maryanne Gage RN Unavailable [phone] Reason for Referral * Surgical (Routine) - Closed Specialty Diagnoses / Procedures Referred By Contguanaco t Referred To Contact Diagnoses Varicose veins of left lower extremity with pain Procedures Case request operating room: STAB PHLEBECTOMY Jourdan Carlton MD [facility]. [facility] [address] [place] [address] Phone: tel: fax: [facility] [place] [address] Phone: tel: Referral ID Status Reason Start Date Expiration Date Visits Re quested Visits Authorized [id number] Closed 10/13/2021 10/13/2021 1 1 RONMENTAL ENGINEER Encounter Details Date Type Department Care Team (Late st Contact Info) Description 08/22/2021 Prep for Procedure [facility], [facility] [address] [place] [address] Jourdan Carlton MD [address] [address] Social History Tobacco Use Types Packs/Day Years [...] Sex Assigned at Female 10/16/2024 2:10 PM ENVIRONMENTAL ENGINEER Legal Sex Female 9:13 PM ENVIRONMENTAL ENGINEER Gender Identity Female 09/13/2021 1:09 PM ENVIRONMENTAL ENGINEER Sexual Orientation Not on file COVID-19 Exposure Response Date Recorded In the last month, have you been in contact with someone who was confirmed or suspected to have Coronavirus / COVID-19? Unable to assess 08/16/2021 12:01 PM ENVIRONMENTAL ENGINEER documented as of this encounter Functional Status [...] Description 04/07/2025 11:45 AM CDT Office Visit [facility] [address] [place] [address] Jourdan Carlton MD [facility] [address] [place] [address] Scheduled Orders Name Type Priority Associated Diagnoses Orde r Schedule Case request operating room: STAB PHLEBECTOMY Case Request Routine Once for 1 Occurrences starting 08/22/2021 until 08/22/2021 documented as of this encounter Visit Diagnoses Diagnosis field assessor (current) use of anticoagulants- Primary Long-term (current) use of anticoagulants Varicose veins of lower extremity with pain, left documented in this encounter Additional Health Concerns Infection Onset Date Last Indicated Resolved Time COVID-19 Rule Out 09/13/2021 09/13/2021 09/13/2021 9:37 AM ENVIRONMENTAL ENGINEER COVID-19 Rule Out 09/13/2021 09/13/2021 09/14/2021 9:33 PM ENVIRONMENTAL ENGINEER ESBL - Extended Spectrum Beta-lactamase Comment:10/09/23 urine (RR) 10/09/2023 10/09/2023 Assessment Noted Time PHQ-9 Depression Total Score: 0 05/17/20 21 11:47 AM CDT documented as of this encounter Care Teams Traveling Storekeeper Relationship Specialty Start Date End Date Latisha Huber APNP [address] [address] PCP - General Nurse Practitioner Family 02/20/21 01/30/23 Jennifer Kinsey, CHARLEYC [address] [address] PCP - General PHYSICIAN AUTOMATIC PROFILE SHAPER OPERATOR 01/31/23 Annie Marques RN [facility] [place] [address] Business Supervisor (Ambulatory) REGISTERED NURSE 10/10/23 10/13/23 Maryanne Gage, RN [address] [place] [address] Business Supervisor (Ambulatory) REGISTERED NURSE 10/15/24 documented as of this encounter
--- OUTSIDE RECORDS SUMMARY | 2024-11-16 22:53 | XMS_ITS | Clinical Summary ---
Author Organization 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 [...] months. Assessment & Plan (11/05/2022 11:28 AM TRUCK TRAILER FINAL INSPECTOR): We discussed the risks, benefits, and alternatives. [...] months. Assessment & Plan (10/08/2022 12:23 PM TRUCK TRAILER FINAL INSPECTOR): We discussed the risks, benefits, and alternatives. 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 [address] [place] [address] Mayte Martin, wood caulker (Swing bed referral to [facility] from [facility]) 10/19/2024 Patient Outreach [facility] Family Internal [address] [phone] Maryanne Gage, RN Hospital Follow Up (Call to ) 10/16/2024 Telephone [facility] Family Internal [address] [address] Jennifer Kinsey PA-C FYI 10/16/2024 Patient Outreach [facility] Family & Internal Medicine [address] [address] Maryanne Gage RN Hospital Follow Up (Call to ) 10/15/2024 Patient Outreach [facility] Family & Internal [address] [phone] Maryanne Gage RN Hospital Follow Up (TCM admit 10/13/24- UTI, syncope, hypokalemia and elevated troponin. ) 10/13/2024 Scan MG Work Inspire INFO SRVCS Scanned, [facility] 10/05/2024 4:00 PM TRUCK TRAILER FINAL INSPECTOR Office Visit [facility] Orthopedic Surgery [address] [place] [address] John Santos DO Knee Pain (PANDA Knee Pain) 10/05/2024 Scan MG HEALTH INFO SRVCS Scanned, [facility] 10/05/2024 Travel 08/28/2024 Telephone [facility] Internal [address] [address] Jennifer Kinsey PA-C Referral from [...] pur e alcohol) Socially, 1x per week [facility] Utilities Answer Date Recorded In the past 12 months has e electric, gas, oil, or water [employer] threatened to shut off services in your [...] place to sleep or slept in a group home (including now)? No 10/09/2023 Comments No Sex and Gender Information Value Date Recorded Sex Assigned at Female 10/16/2024 2:10 PM TRUCK TRAILER FINAL INSPECTOR Legal Sex Female 9:13 PM TRUCK TRAILER FINAL INSPECTOR Gender Identity Female 09/13/2021 1:09 PM TRUCK TRAILER FINAL INSPECTOR Sexual Orientation Not on file Last Filed Vital Signs Vital Sign Reading Time Taken Comments Blood Pressure 126/68 10/05/2024 4:12 PM TRUCK TRAILER FINAL INSPECTOR Pulse 78 10/05/2024 4:12 PM TRUCK TRAILER FINAL INSPECTOR Temperature 36.3 C (97.4 F) 10/05/2024 4:12 PM TRUCK TRAILER FINAL INSPECTOR Respiratory Rate 14 03/20/2024 4:17 PM CDT Oxygen Saturation 100% 10/05/2024 4:12 PM TRUCK TRAILER FINAL INSPECTOR Inhaled Oxygen Concentration - - Weight 95.2 kg (209 lb 12.8 oz) 10/05/2024 4:12 PM TRUCK TRAILER FINAL INSPECTOR Height 180.3 cm (5' 11 ) 10/05/2024 4:12 PM TRUCK TRAILER FINAL INSPECTOR Body Mass Index 29.26 10/05/2024 4:12 PM TRUCK TRAILER FINAL INSPECTOR Plan of Treatment Upcoming Encounters Date Type Department Care Team (Late st Contact Info) Description 04/07/2025 11:45 AM CDT Office Visit [facility] [address] [place] [address] Jourdan Carlton MD [facility] [address] [place] [address] Health Maintenance Due Date Last Done Comments Annual Physical 1970 Hepatitis B Vaccines (1 of 3 - 19+ 3-dose series) 1986 Cervical Cancer Screening Pap with HPV Testing (Age 30 to 64) Every 5 Years 1997 Cervical Cancer Screening Pap Smear (Age 30 to 64) Every 3 Years 09/24/2021 09/24/2018, 09/24/2018 Cervical Cancer Screening with HPV 09/24/2021 Mammogram Screening 07/10/2024 07/10/2022 PHQ-2 (Physician [place]) 09/16/2024 12/02/2023 Colorectal Cancer Screening Colonoscopy (10 [...] CERV/VAG THIN LAYER Routine 09/24/2018 4:00 PM TRUCK TRAILER FINAL INSPECTOR Health maintenance examination from Last 3 Months or Most Recently Relevant to Health Maintenance Results * MAMMOGRAM GENERIC (07/10/2022) Anatomical Region Laterality Modality Other 07/10/2022 us [facility] Scanned SCANNING Final Resu lt * Cytopath Cerv/Vag Thin Layer (09/24/2018 4:00 PM TRUCK TRAILER FINAL INSPECTOR) 09/24/2018 4:00 PM TRUCK TRAILER FINAL INSPECTOR us Tania Bell MD PATHOLOGY/CYTOLOGY ORDERABLE S [...] 2:07 PM 03/08/2021 6:38 PM Care Teams Materials Planner/Production Planner Relationship Specialty Start Date End Date Jennifer Kinsey PA-C [address] [address] PCP - General PHYSICIAN REFINING SUPERVISOR 01/31/23 Maryanne Gage, RN [address] [place] [address] Furnace Repairer (Ambulatory) REGISTERED NURSE 10/15/24
--- OUTSIDE RECORDS SUMMARY | 2024-11-16 22:53 | XMS_ITS | Continuity of Care Document ---
Author Organization [facility] Address [address] [place] [address] Phone Care Team Providers Care Filters Assembler Name Role Phone Robert Fitzgerald MD Unavailable [...] Diagnoses Date Provider Providers Copied on Encounter [facility], [id number] [place] [address], [id number], tel:[phone] [facility] No Information Amilcar Jones. [address] [place], [place], [id number], [place]. tel:[phone] Referring Provider: [address], [place], [address]. tel:[phone] [facility], [address], [place], [place], [id number], tel:[phone] [facility] No Information Amilcar Jones. [address], [place], [place], [id number], [place]. tel:[phone] Referring Provider: [address], [place], [address]. tel:[phone] [facility], [address], [place], [place], [address], tel:[phone] [facility] No Information Jory Leon. [address], [place], [place], [id number], [place]. tel:[phone] Referring Provider: Mitch Noonan, [address], [place], [address]. tel:[phone] Family History Family Member Type Diagnosis Age At Onset No Information Payers Payer name Insurance type Covered alliance party ID Authoriza tion(s) MEDICARE [id number] Social History Type Description Quantity Date Captured [...]
--- OUTSIDE RECORDS SUMMARY | 2024-11-16 22:53 | XMS_ITS | Clinical Summary ---
Author Organization [facility] Address [address] [place] [address] Phone Care Team Providers Care Tree Tapping Laborer Name Role Phone AmelieJennifer Trey MONTOYA Primary Care Provider [phone] Antony Ron MD Unavailable [phone] Allergies No known active allergies Medications pregabalin [...] on file Legal Sex Female 3:37 PM PATIENT CARE Gender Identity Not on file Sexual Orientation [...] topic Insurance MEDICARE C ESSENCE Care Teams Tree Tapping Laborer Relationship Specialty Start Date End Date Jennifer Kinsey [place] [address] [place] [address] PCP - General Physician Medical Scientific Liaison 11/06/23 [place] [address] [place] [address] Consulting Physician Oncology 11/06/23
--- OUTSIDE RECORDS SUMMARY | 2024-11-16 22:53 | XMS_ITS | Clinical Summary ---
Author Organization [facility] Address [address] [place] [address] Care Team Providers Care Pre Press Operator Name Role Phone Unavailable Primary Care Provider Unavailabl e Source Comments [facility],non-owned Affiliates and Associated Physician Practices is amultiple site organization consisting of ambulatory clinics and hospital sitesin [place], [place], [place] and [place]. This disclosure is being madepursuant to the Care Everywhere program and may not contain all information available regarding this patient. Last updated 18.[facility] [employer] Active Problems Problem Noted Date Diagnosed Date [...]
--- OUTSIDE RECORDS SUMMARY | 2024-11-16 22:53 | XMS_ITS | Encounter Summary ---
Author Organization [facility] Address [address] [place] [address] Care Team Providers Care Human Relations Manager Name Role Phone Tania Bell MD Primary Care Provider [phone] Latisha Huber Primary Care Provider [phone] Hannah Herrera RN Unavailable Unavailab Usha Castillo RN Unavailable [phone] Ebony Mckeon RN Unavailable [phone] Jennifer Kinsey-C Primary Care Provider [phone] Annie Marques RN Unavailable [phone] Maryanne Gage RN Unavailable [phone] Encounter Details Date Type Department Care Team (Late st Contact Info) Description 03/07/2020 Prep for Procedure [facility] [address] [place] [address] Ene Walters MD [address] [place] [address] Social History Tobacco Use Types Packs/Day Years Used Date Smoking Tobacco: Never Smokeless Tobacco: Never Alcohol Use Standard Drinks/Week Comments Yes 1 (1 standard drink = 0.6 oz pur e alcohol) Socially, 1x per week PHQ-2 Answer Date Recorded PHQ-2 Score 0 01/26/2019 Comments No Sex and Gender Information Value Date Recorded Sex Assigned at Female 10/16/2024 2:10 PM ELECTRIC DOLLY OPERATOR Legal Sex Female 9:13 PM ELECTRIC DOLLY OPERATOR Gender Identity Female 09/13/2021 1:09 PM ELECTRIC DOLLY OPERATOR Sexual Orientation Not on file COVID-19 [...] Description 04/07/2025 11:45 AM CDT Office Visit [facility] [address] [place] [address] Jourdan Carlton MD [address] [address] documented as of this encounter Visit Diagnoses Not on filedocumented in this encounter Additional Health Concerns Infection Onset Date Last Indicated Resolved Time COVID-19 Rule Out 03/08/2020 03/08/2020 03/09/2020 4:39 PM CDT COVID-19 Rule Out 09/13/2021 09/13/2021 09/13/2021 9:37 AM ELECTRIC DOLLY OPERATOR COVID-19 Rule Out 09/13/2021 09/13/2021 09/14/2021 9:33 PM ELECTRIC DOLLY OPERATOR ESBL - Extended Spectrum Beta-lactamase Comment:10/09/23 urine (RR) 10/09/2023 10/09/2023 documented as of this encounter Care Teams Human Relations Manager Relationship Specialty Start Date End Date Tania Bell MD PCP - General INTERNAL MEDICINE 07/25/18 02/19/21 Latisha Huber APNP [address] [address] PCP - General Nurse Practitioner Family 02/20/21 01/30/23 Jennifer Kinsey, REBECCA [address] [id number] PCP - General PHYSICIAN CLINICAL DIETETIC TECHNICIAN 01/31/23 Hannah Herrera, inspecting and testing lead hand (Ambulatory) REGISTERED NURSE 03/08/21 03/23/21 Usha Braun RN [address] [place], [place] [id number] Tracer Bullet Charging Machine Operator (Ambulatory) REGISTERED NURSE 03/24/21 04/10/21 Ebony Mckeon RN [address] [place], [place] [phone] Tracer Bullet Charging Machine Operator (Ambulatory) REGISTERED NURSE 05/02/21 06/13/21 Annie Marques, RN [address] [place], [place] [phone] Tracer Bullet Charging Machine Operator (Ambulatory) REGISTERED NURSE 10/10/23 10/13/23 Maryanne Gage RN [address] [place], [place] [phone] Tracer Bullet Charging Machine Operator (Ambulatory) REGISTERED NURSE 10/15/24 documented as of this encounter
--- OUTSIDE RECORDS SUMMARY | 2024-11-16 22:54 | XMS_ITS | Patient Health Summary ---
Author Organization [facility] Address [address] [facility] [place] [address] Care Team Providers Care Operations And Maintenance Manager Name Role Phone Unavailable Primary Care Provider Unavailabl e Note from [facility],non-owned Affiliates and Associated Physician Practices is amultiple site organization consisting of ambulatory clinics and hospital sitesin [place], [place], [place] and [place]. This disclosure is being madepursuant to the Care Everywhere program and may not contain all information available regarding this patient. Last updated 18.[facility] Active Problems Problem Noted Date Diagnosed Date Syncope, unspecified syncope type 10/12/2024 Social History Tobacco Use Types Packs/Day Years Used Date Smoking Tobacco: Never Assessed Sex and Gender Information Value Date Recorded Sex Assigned at Not on file Gender Identity Female 04/27/2022 8:53 AM CDT Sexual Orientation Not on file
--- OUTSIDE RECORDS SUMMARY | 2024-11-16 22:54 | XMS_ITS | Encounter Summary ---
Author Organization [facility] Address [address] [place] [address] Care Team Providers Care Die Repair Machinist Name Role Phone Latisha Huber Primary Care Provider [phone] Jennifer KinseyC Primary Care Provider [phone] Annie Marques RN Unavailable [phone] Maryanne Gage RN Unavailable [phone] Encounter Details Date Type Department Care Team (Late st Contact Info) Description 01/16/2022 Hospital Orders Only [facility] [place] [address] [id number] Dafne Dey APNP [address] [place] [address] Social History Tobacco Use Types [...] Sex Assigned at Female 10/16/2024 2:10 PM RECREATION CLERK Legal Sex Female 9:13 PM RECREATION CLERK Gender Identity Female 09/13/2021 1:09 PM RECREATION CLERK Sexual Orientation Not on file COVID-19 Exposure [...] Description 04/07/2025 11:45 AM CDT [facility] [address] [place] [phone] Jourdan Carlton MD [facility] [place] [address] [place], [place] [phone] documented as of this encounter Visit Diagnoses Not on filedocumented in this encounter Additional Health Concerns Infection Onset Date Last Indicated Resolved Time ESBL - Extended Spectrum Bet a-lactamase Comment:10/09/23 urine (RR) 10/09/2023 10/09/2023 Assessment Noted Time PHQ-9 Depression Total Score: 0 12/15/19 22 1:00 PM CDT documented as of this encounter Care Teams Die Repair Machinist Relationship Specialty Start Date End Date Latisha Huber APNP [address] [address] PCP - General Nurse Practitioner Family 02/20/21 01/30/23 Jennifer Kinsey PA-C [address] [address] PCP - General PHYSICIAN GAMES MANAGER 01/31/23 Annie Marques RN [address] [place], [place] [phone] Revenue Agent (Ambulatory) REGISTERED NURSE 10/10/23 10/13/23 Maryanne Gage RN [address] [place], [place] [phone] Revenue Agent (Ambulatory) REGISTERED NURSE 10/15/24 documented as of this encounter
[2024-11-16 23:07] LABS: Basophils Percent Auto 0.3 % (0.2-1.2); Eosinophils Percent Auto 0.6 % (0-4.4); Hemoglobin 11.8 g/dL (12.0-15.0); Immature Granulocyte Absolute 0.02 K/mm3 (0.00-0.031); Immature Granulocyte Percent A 0.3 % (0-0.5); Lymphocytes Percent Auto 14.8 % (18.3-44.2); Mean Corpuscular HGB Conc 32.8 g/dl (32-36); Mean Corpuscular Hemoglobin 32.7 pg (26-34); Mean Corpuscular Volume 99.7 fl (80-100); Monocytes Absolute Auto 0.3 K/mm3 (0.1-0.6); Monocytes Percent Auto 4.7 % (2.6-8.5); Neutrophils Absolute Auto 5.4 K/mm3 (1.3-6.7); Neutrophils Percent Auto 79.3 % (45.5-73.1); Platelet Count Result 188 k/mm3 (150-375); Red Blood Count 3.61 M/mm3 (4.2-5.4); Red Cell Distribution Width 14.4 % (11.5-14.5); White Blood Count 6.8 K/mm3 (4.5-10.0)
[2024-11-16 23:20] LABS: Alanine Aminotransferase 15 U/L (6-35); Albumin Level 3.5 g/dL (3.5-5.1); Alkaline Phosphatase 124 U/L (38-126); Anion Gap 13 mmol/L (4-12); Aspartate Amino Transferase 24 U/L (14-36); Bilirubin,Total 0.7 mg/dL (0.2-1.3); Blood Urea Nitrogen 14 mg/dL (7-17); Calcium 9.4 mg/dL (8.4-10.2); Carbon Dioxide 20 mmol/L (22-30); Chloride 106 mmol/L (98-107); Estimated CRCL calculation 101 ml/min; Estimated Glomerular Filt Rate > 60; Glucose 104 mg/dL (65-110); Magnesium 1.8 mg/dL (1.6-2.3); Potassium 3.1 mmol/L (3.4-5.0); Sodium 139 mmol/L (137-145)
[2024-11-16 23:28] LABS: INR 1.2
[2024-11-16 23:29] LABS: Partial Thromboplastin Time 27.1 Seconds (22.3-36.8)
[2024-11-16 23:31] LABS: NT Pro B Type Natriuretic Pept 103 pg/mL (19.9-100); Troponin I < 0.012 ng/mL (0.000-0.034)
[2024-11-16 23:34] LABS: Add Urine Microscopic? YES; Appearance Urine Cloudy (Clear); Bacteria Urine 4+ /hpf; Bilirubin Urine 1+ (Negative); Blood Urine 2+ (Negative); Calcium Oxalate Crystals Urine Present /hpf; Color Urine Dark Yellow (Yellow); Glucose Urine UA Negative (Negative); Ketones Urine Trace mg/dL (Negative); Leukocyte Esterase Ur 2+ LEU/UL (Negative); Mucus Urine Present /lpf; Need Manual Microscopic Reviewed; Nitrate Urine Positive (Negative); Protein Urine 1+ mg/dL (Negative); Specific Grav Ur 1.024 (1.001-1.035); Squamous Epithelial Cell Urine Occasional /hpf (Few); WBC Urine >100 /hpf (0-3)
[2024-11-16 23:58] LABS: Influenza A QL RT-PCR Negative (Negative); Influenza B QL RT-PCR Negative (Negative); RSV RNA, RT-PCR Negative (Negative); SARS-CoV-2 RNA PCR Negative (Negative)
[2024-11-17] VITALS (13 sets, daily range): BP systolic 89–118; BP diastolic 52–71; PULSE 71–95; RESP 16–21; TEMP 36–37.2; O2SAT 94–98; BMI 24.6
[2024-11-17 00:27] LABS: Procalcitonin 0.1 ng/mL
--- NOTE | 2024-11-17 01:53 | ED.GENADULT ---
HPI - General Adult General Chief complaint: Syncope Stated complaint: dizzy, syncopal episode Time Seen by Provider: 11/16/24 22:01 History of Present Illness HPI narrative: Patient is a 8-year-old female who presents emergency department with chief complaint of syncopal episode the patient is currently doing rehab at [facility] after being admitted to [facility] and being on ECMO. Patient states that she was diagnosed with UTI but has not been treated for it yet. Related Data Home Medications ?Medication ?Instructions ?Recorded ?Confirmed ?Last Taken ?Type apixaban 5 mg tablet (Eliquis) 5 mg PO BID 08/02/21 08/02/21 Unknown History cranberry 400 mg capsule 400 mg PO DAILY 08/02/21 08/02/21 Unknown History multivitamin (Daily Multi-Vitamin 1 tablet PO DAILY 08/02/21 08/02/21 Unknown History tablet) omeprazole 20 mg capsule,delayed 20 mg PO DAILY 08/02/21 08/02/21 Unknown History release paroxetine HCl 30 mg tablet 30 mg PO DAILY 08/02/21 08/02/21 Unknown History topiramate 50 mg tablet 50 mg PO BID 08/02/21 08/02/21 Unknown History amitriptyline 50 mg tablet 50 mg PO HS 10/12/24 Unknown History bupropion HCl 300 mg 24 hr tablet, 300 mg PO DAILY 10/12/24 Unknown History extended release Allergies Allergy/AdvReac Type Severity Reaction Status Date / Time No Known Allergies Allergy Mild Unverified 10/12/24 17:25 Review of Systems Review of Systems: A 10 system review of systems was completed on the patient and is negative except for what is stated in the HPI. Nursing and ancillary documentation was reviewed. [facility] Past Medical History Medical History Varicose vein of leg Migraine Gallbladder disorder Anxiety Pulmonary embolism Surgical History Surgical History History of dilation and curettage Previous back surgery [place] teeth extracted Social History Social History Smoking status: Never smoker Alcohol intake: current Substance use: never Exam Narrative: GENERAL: Well-appearing, well-nourished, and in no acute distress. HEAD: Normocephalic, atraumatic. EYES: PERRLA and EOMI. ENT: Nares clear, no rhinorrhea or epistaxis. Mucous membranes moist. NECK: Supple. CHEST: Clear to auscultation. No respiratory distress. HEART: Regular rate and rhythm. No murmur heard. Normal peripheral pulses. ABDOMEN: Soft, nontender, nondistended, normal active bowel sounds. EXTREMITIES: Normal range of motion. No edema. SKIN: Warm, dry, no rash. Healing wound in the left inguinal area from trocar site NEURO: No focal deficits. Alert and oriented x3. PSYCH: Normal mood and affect. Course Vital Signs Vital signs: Vital Signs Temperature 36.4 C 11/16/24 18:07 Pulse Rate 110 H 11/16/24 18:07 Respiratory Rate 18 11/16/24 18:07 Blood Pressure 102/66 11/16/24 18:07 Pulse Oximetry 100 11/16/24 18:07 Oxygen Delivery Room Air 11/16/24 18:07 Temperature 36.4 C 11/16/24 18:07 Pulse Rate 92 11/17/24 01:40 Respiratory Rate 21 H 11/17/24 01:40 Blood Pressure 110/71 11/17/24 01:40 Pulse Oximetry 96 11/17/24 01:40 Oxygen Delivery Room Air 11/16/24 21:39 Medical Decision Making [facility] Narrative Medical decision making narrative: Differential diagnosis includes pulmonary embolism, UTI, electrolyte abnormality , vasovagal syncope CT head showed no acute abnormality CT chest showed no acute finding Urinalysis positive for UTI electrolytes are within normal limits Patient started on Rocephin admitted for observation Vital Signs Vital Signs: Vital Signs Temperature 36.4 C 11/16/24 18:07 Pulse Rate 110 H 11/16/24 18:07 Respiratory Rate 18 11/16/24 18:07 Blood Pressure 102/66 11/16/24 18:07 Pulse Oximetry 100 11/16/24 18:07 Oxygen Delivery Room Air 11/16/24 18:07 Temperature 36.4 C 11/16/24 18:07 Pulse Rate 92 11/17/24 01:40 Respiratory Rate 21 H 11/17/24 01:40 Blood Pressure 110/71 11/17/24 01:40 Pulse Oximetry 96 11/17/24 01:40 Oxygen Delivery Room Air 11/16/24 21:39 Lab Data 11/16/24 22:57 11/16/24 22:57 Labs: Lab Results 11/16/24 11/16/24 11/16/24 Range/Units 22:57 23:10 23:17 WBC 6.8 (4.5-10.0) K/mm3 RBC 3.61 L (4.2-5.4) M/mm3 Hgb 11.8 L (12.0-15.0) g/dL Hct 36.0 L (37.0-47.0) % MCV 99.7 (80-100) fl MCH 32.7 (26-34) pg MCHC 32.8 (32-36) g/dl RDW 14.4 (11.5-14.5) % Plt Count 188 (150-375) k/mm3 MPV 10.0 (7.4-10.4) fl Immature Gran % (Auto) 0.3 (0-0.5) % Neut % (Auto) 79.3 H (45.5-73.1) % Lymph % (Auto) 14.8 L (18.3-44.2) % Union % (Auto) 4.7 (2.6-8.5) % Eos % (Auto) 0.6 (0-4.4) % Baso % (Auto) 0.3 (0.2-1.2) % Lymph # (Auto) 1.00 (0.9-3.2) K/mm3 Union # (Auto) 0.3 (0.1-0.6) K/mm3 Eos # (Auto) 0.0 (0-0.3) K/mm3 Baso # (Auto) 0.0 (0.0-0.1) K/mm3 Abs Immat Gran (auto) 0.02 (0.00-0.031) K/mm3 Absolute Neuts (auto) 5.4 (1.3-6.7) K/mm3 Absolute Nucleated RBC 0.000 (0.0-0.012) K/mm3 Nucleated RBC % 0.0 (0.0-0.2) % PT 16.0 H (11.1-14.7) Seconds INR 1.2 APTT 27.1 (22.3-36.8) Seconds Sodium 139 (137-145) mmol/L Potassium 3.1 L (3.4-5.0) mmol/L Chloride 106 (98-107) mmol/L Carbon Dioxide 20 L (22-30) mmol/L Anion Gap 13 H (4-12) mmol/L BUN 14 (7-17) mg/dL Creatinine 0.60 L (0.7-1.0) mg/dL Estim Creat Clear Calc 101 ml/min Estimated GFR > 60 (59 - ) Glucose 104 (65-110) mg/dL Lactic Acid 1.0 (0.7-2.0) mmol/L Calcium 9.4 (8.4-10.2) mg/dL Magnesium 1.8 (1.6-2.3) mg/dL Total Bilirubin 0.7 (0.2-1.3) mg/dL AST 24 (14-36) U/L ALT 15 (6-35) U/L Alkaline Phosphatase 124 (38-126) U/L Troponin I < 0.012 (0.000-0.034) ng/mL NT-Pro-B Natriuret Pep 103 H (19.9-100) pg/mL Total Protein 7.0 (6.3-8.2) g/dL Albumin 3.5 (3.5-5.1) g/dL Procalcitonin 0.1 ng/mL Urine Color Dark yellow (Yellow) Urine Appearance Cloudy H (Clear) Urine pH 5.0 (5.0-9.0) Ur Specific [place] 1.024 (1.001-1.035) Urine Protein 1+ H (Negative) mg/dL Urine Glucose (UA) Negative (Negative) mg/dL Urine Ketones Trace H (Negative) mg/dL Ur Blood (Man) 2+ H (Negative) Urine Nitrate Positive H (Negative) Urine Bilirubin 1+ H (Negative) Urine Urobilinogen 1.0 (<2.0) mg/dL Add Ur Microanalysis Reviewed Leukocyte Esterase Rfl 2+ H (Negative) ANANTH/UL Urine RBC 6-10 H (0-2) /hpf Urine WBC >100 H (0-3) /hpf Ur Squamous Epith Cells Occasional (Few) /hpf Calcium Oxalate Crystal Present (None) /hpf Urine Bacteria 4+ H /hpf Urine Casts 11-20 Urine Mucus Present /lpf Influenza A (RT-PCR) Negative (Negative) Influenza B (RT-PCR) Negative (Negative) RSV (RT-PCR) Negative (Negative) SARS-CoV-2 RNA (RT-PCR) Negative (Negative) 11/17/24 Range/Units 01:38 WBC (4.5-10.0) K/mm3 RBC (4.2-5.4) M/mm3 Hgb (12.0-15.0) g/dL Hct (37.0-47.0) % MCV (80-100) fl MCH (26-34) pg MCHC (32-36) g/dl RDW (11.5-14.5) % Plt Count (150-375) k/mm3 MPV (7.4-10.4) fl Immature Gran % (Auto) (0-0.5) % Neut % (Auto) (45.5-73.1) % Lymph % (Auto) (18.3-44.2) % Union % (Auto) (2.6-8.5) % Eos % (Auto) (0-4.4) % Baso % (Auto) (0.2-1.2) % Lymph # (Auto) (0.9-3.2) K/mm3 Union # (Auto) (0.1-0.6) K/mm3 Eos # (Auto) (0-0.3) K/mm3 Baso # (Auto) (0.0-0.1) K/mm3 Abs Immat Gran (auto) (0.00-0.031) K/mm3 Absolute Neuts (auto) (1.3-6.7) K/mm3 Absolute Nucleated RBC (0.0-0.012) K/mm3 Nucleated RBC % (0.0-0.2) % PT (11.1-14.7) Seconds INR APTT (22.3-36.8) Seconds Sodium (137-145) mmol/L Potassium (3.4-5.0) mmol/L Chloride (98-107) mmol/L Carbon Dioxide (22-30) mmol/L Anion Gap (4-12) mmol/L BUN (7-17) mg/dL Creatinine (0.7-1.0) mg/dL Estim Creat Clear Calc ml/min Estimated GFR (59 - ) Glucose (65-110) mg/dL Lactic Acid (0.7-2.0) mmol/L Calcium (8.4-10.2) mg/dL Magnesium (1.6-2.3) mg/dL Total Bilirubin (0.2-1.3) mg/dL AST (14-36) U/L ALT (6-35) U/L Alkaline Phosphatase (38-126) U/L Troponin I Pending (0.000-0.034) ng/mL NT-Pro-B Natriuret Pep (19.9-100) pg/mL Total Protein (6.3-8.2) g/dL Albumin (3.5-5.1) g/dL Procalcitonin ng/mL Urine Color (Yellow) Urine Appearance (Clear) Urine pH (5.0-9.0) Ur Specific [place] (1.001-1.035) Urine Protein (Negative) mg/dL Urine Glucose (UA) (Negative) mg/dL Urine Ketones (Negative) mg/dL Ur Blood (Man) (Negative) Urine Nitrate (Negative) Urine Bilirubin (Negative) Urine Urobilinogen (<2.0) mg/dL Add Ur Microanalysis Leukocyte Esterase Rfl (Negative) ANANTH/UL Urine RBC (0-2) /hpf Urine WBC (0-3) /hpf Ur Squamous Epith Cells (Few) /hpf Calcium Oxalate Crystal (None) /hpf Urine Bacteria /hpf Urine Casts Urine Mucus /lpf Influenza A (RT-PCR) (Negative) Influenza B (RT-PCR) (Negative) RSV (RT-PCR) (Negative) SARS-CoV-2 RNA (RT-PCR) (Negative) Discharge Plan Discharge Clinical Impression: Syncope, UTI (urinary tract infection) Patient Disposition: Still a Patient Condition: Stable Patient Language: Portuguese Prescriptions: No Action amitriptyline 50 mg tablet 50 mg PO HS bupropion HCl 300 mg tablet extended release 24 hr 300 mg PO DAILY paroxetine HCl 30 mg tablet 30 mg PO DAILY topiramate 50 mg tablet 50 mg PO BID Eliquis 5 mg tablet 5 mg PO BID omeprazole 20 mg capsule,delayed release(DR/EC) 20 mg PO DAILY cranberry 400 mg capsule 400 mg PO DAILY Rx Instructions: administer with a meal multivitamin [Daily Multi-Vitamin] Tablet 1 tablet PO DAILY Follow-up/Referrals: UNKNOWN,DOCTOR [Primary Care Provider] - Time of Disposition: 01:55
[2024-11-17 02:09] LABS: Troponin I < 0.012 ng/mL (0.000-0.034)
--- NOTE | 2024-11-17 02:15 | PC.NURSE ---
This RN tried to call Anslye at [place] but no response
--- NOTE | 2024-11-17 02:24 | ADMGEN ---
This patient, Mahnaz Murphy, was admitted to 2 Medical Room 259-. Patient/family oriented to hospital policies and general routines including ID bracelet, bed and alarms, visiting hours, pain management, procedures, bathroom and other care routines, personal items, smoking policy, room service/diet, and visiting hours. Information on how to activate the Rapid Response Team has been discussed. Patient/Family are encouraged to report perceived risks to care and to ask questions if they do not understand what they are told or what they should do.
[2024-11-17] MEDS: ACETAMINOPHEN 325 MG TABLET 650 MG PO ×2 (03:18→20:22)
--- NOTE | 2024-11-17 06:32 | P.HP_ITS ---
H&P: HPI History of Present Illness Date/Time: 11/17/24 06:32 Chief Complaint: Syncope Narrative: 59yo female with anxiety, migraines and hx of PE here for syncopal episode. Patient has syncopal episode prior to her last hospitalization on October 13 which prompted admission to [facility]. She had confusion in the was concern for meningitis. She has photophobia. He was started on antibiotics with imp rovement of her symptoms. She has been off her Eliquis for few days and went up walking, she felt a cramp in her calf and then became unresponsive and a code blue was called. She states that she was brought to the OR and a clot was removed from her heart. She was placed on ECMO. She has a left groin sore that was draining purulent material but this has improved with dressing changes. No history of CVA but does state that she has some drooling with drinking noted from the right side. She was discharged about 2-3 weeks ago to [facility] for therapy. She has been at the rehab facility for about 2 weeks. She was doing well but does complain of some lightheadedness with standing if she gets up too fast. She states her systolic blood pressure normally is elevated after walking to about 155. She was switched from Eliquis at discharge to Pradaxa by the rehab physician for unclear reasons. She has been compliant with Pradaxa except that 1 dose was skipped on Saturday night. On the day of admission, patient was walking to the bathroom when she felt presyncopal. She was immediately return to her bed where she was laid down. There was no fall. There was no head inju ry. She had a syncopal episode lasting about 30 seconds. There is no mention of seizure-like activity but she was confused when she awoke. She does not recall how long she was confused. There was no urine incontinence or tongue biting. She has a history of epilepsy when she was young around 13yo. She was on anti epileptic medication until 17 years of age. No seizures since age 17. No myalgias. She has been eating okay. No nausea or vomiting. She did have diarrhea on the day of admission. She has not been on antibiotics since her discharge from [facility]. She did have some chest pressure after the event as ?someone sitting on my chest?. She has no history of coronary disease but does have mitral valve prolapse. She had a stress test about 3 years ago that was negative. She has not been having any chest pain with activity but does feel more short of breath when she is active at rehab. She also had a dull pain in the base of her neck associated with the chest discomfort. No fever or chills. No melena or hematochezia. She does complain of dysuria and was diagnosed with UTI at the facility but was not on antibiotics prior to admission. She is brought to the emergency room for evaluation In the ED, she was hemodynamically stable. Mild tachycardia at 110 with elevated RR 32 but no fevers and not hypoxic. CBC normal except normocytic anemia (Hgb 11.8). Potassium 3.1 with serum bicarb 20 (AG 13) o/w CMP normal. BNP 103. Troponin negative x2. UA is concerning for UTI. COVID, Influenza and RSV PCR negative. CT Head showing no acute intracranial hemorrhage or suspicious mass effect. CTA Chest showing clear lungs and suggestion of several small subacute to chronic or resolving pulmonary emboli in segmental branches in the right lower lobe. No large central pulmonary embolus. EKG showing sinus with LVH and poor R wave progression. She was given Tylenol and Rocephin and admitted for further care. Review of Systems Review of Systems: All systems reviewed & are unremarkable except as noted in HPI and below PMFSH Past Medical History Medical History (Updated 11/17/24 @ 14:47 by Carlos Salomon MD) Seizure as a chaild Varicose vein of leg Migraine Gallbladder disorder Anxiety Pulmonary embolism Surgical History Surgical History (Updated 11/17/24 @ 14:41 by Carlos Salomon MD) History of dilation and curettage Previous back surgery L4-5 [place] teeth extracted Family History Family History Father Acute myocardial infarction Congestive heart failure Mother Acute myocardial infarction Sibling History of blood clots Diabetes mellitus Pancreatic cancer Sibling Cerebrovascular accident Social History Social History (Updated 11/17/24 @ 14:42 by Carlos Salomon MD) Social History: Was a heavy alcohol drinker on the weekends but no alcohol use for years. Life long nonsmoker No drug use or hx of drug use. Code status - DNR Surrogate decision maker - Sister Smoking status: Never smoker Alcohol intake: former Substance use: never Do You Feel Safe in your Home?: Yes Lack of Transportation: No Lack of Food: Never True Current Housing: I Have Housing Concerned About Future Housing: No Difficulty Paying Gas/Electric Bills: No Difficulty Paying for Meds: No Currently Unemployed: No Education: High School Diploma/GED Difficulty w/ Childcare or Family Care: No Spiritual care concerns: No Meds Home Medications and Allergies Home Medications ?Medication ?Instructions ?Recorded ?Confirmed ?Type apixaban 5 mg tablet (Eliquis) 5 mg PO BID 08/02/21 11/17/24 History multivitamin (Daily Multi-Vitamin 1 tablet PO DAILY 08/02/21 11/17/24 History tablet) omeprazole 20 mg capsule,delayed 20 mg PO DAILY 08/02/21 11/17/24 History release paroxetine HCl 30 mg tablet 30 mg PO DAILY 08/02/21 11/17/24 History topiramate 50 mg tablet 50 mg PO BID 08/02/21 11/17/24 History amitriptyline 50 mg tablet 50 mg PO HS 10/12/24 11/17/24 History acetaminophen 325 mg capsule 650 mg PO Q6H PRN pain 11/17/24 11/17/24 History atorvastatin 40 mg tablet 40 mg PO QPM 11/17/24 11/17/24 History bisacodyl 5 mg tablet 5 mg PO DAILY PRN constipation 11/17/24 11/17/24 History dabigatran etexilate 150 mg capsule 150 mg PO BID 11/17/24 11/17/24 History loperamide 2 mg capsule 2 mg PO Q6H PRN diarrhea 11/17/24 11/17/24 History melatonin 3 mg capsule 3 mg PO HS 11/17/24 11/17/24 History midodrine 5 mg tablet 5 mg PO TID 11/17/24 11/17/24 History Allergies Allergy/AdvReac Type Severity Reaction Status Date / Time No Known Allergies Allergy Mild Unverified 10/12/24 17:25 Vital Signs Vital Signs - 24 hr 11/16/24 18:07 11/16/24 21:27 11/16/24 21:33 Temperature 97.6 F Pulse Rate 110 H 101 H 93 Respiratory Rate 18 32 H 25 H Blood Pressure 102/66 113/73 Pulse Oximetry 100 100 100 Oxygen Delivery Room Air 11/16/24 21:39 11/16/24 21:46 11/16/24 21:47 Temperature Pulse Rate 93 93 93 Respiratory Rate 28 H 22 H Blood Pressure 117/79 127/77 Pulse Oximetry 100 98 Oxygen Delivery Room Air 11/16/24 21:56 11/16/24 22:00 11/16/24 22:22 Temperature Pulse Rate 92 93 89 Respiratory Rate 21 H 23 H 22 H Blood Pressure Pulse Oximetry 97 97 97 Oxygen Delivery 11/16/24 22:30 11/16/24 22:31 11/16/24 22:45 Temperature Pulse Rate 95 92 95 Respiratory Rate 15 14 18 Blood Pressure 112/71 Pulse Oximetry 97 100 100 Oxygen Delivery 11/16/24 22:46 11/16/24 23:12 11/16/24 23:14 Temperature Pulse Rate 90 100 93 Respiratory Rate 13 28 H 17 Blood Pressure 115/74 135/81 Pulse Oximetry 99 100 100 Oxygen Delivery 11/16/24 23:15 11/16/24 23:17 11/16/24 23:30 Temperature Pulse Rate 92 89 96 Respiratory Rate 17 12 17 Blood Pressure 130/77 Pulse Oximetry 100 99 100 Oxygen Delivery 11/16/24 23:32 11/17/24 01:40 11/17/24 02:21 Temperature Pulse Rate 94 92 92 Respiratory Rate 14 21 H 21 H Blood Pressure 123/87 110/71 110/71 Pulse Oximetry 99 96 96 Oxygen Delivery 11/17/24 02:34 11/17/24 02:36 11/17/24 02:49 Temperature 98.0 F Pulse Rate 95 91 Respiratory Rate 16 Blood Pressure 118/69 Pulse Oximetry 98 Oxygen Delivery Room Air 11/17/24 04:00 11/17/24 05:55 Temperature 98.9 F Pulse Rate 89 89 Respiratory Rate 16 Blood Pressure 89/52 L Pulse Oximetry 94 Oxygen Delivery Exam Narrative: AF 98.9 89/52 89 16 94% ra Gen - well appearing female in no acute respiratory distress who is nontoxic- appearing lying semi recumbent in bed HEENT - normocephalic. Atraumatic. Pupils equal round and reactive. Extraocular motions intact. Sclera clear and anicteric. Nares patent. Oropharynx was clear. No oral lesions. Moist mucous membranes. Tongue was midline. Palate ricky symmetrically. No facial asymmetry. Neck - neck was supple. No dominant adenopathy, thyromegaly or masses. 2+ carotid upstrokes without bruits. Chest - lungs are clear to auscultation bilaterally. No wheezes or crackles. Breast exam was deferred. CV - heart was regular rate and rhythm. S1-S2. No murmurs gallops or rubs. Abd - abdomen was soft. Nontender. Nondistended. Positive bowel sounds. No organomegaly or masses. Ext - no clubbing or cyanosis. Nonpitting bilateral R>L LE edema. 2+ DP pulses bilaterally. Neuro - patient is alert and oriented x4. Strength is 5/5 in upper extremities. Bilateral hip flexors 3/5. Cranial nerves 2-12 are intact. Speech is clear. Psych - normal mood and affect. Patient is pleasant and cooperative. Skin - warm and dry. No rashes noted. Left mid thigh with dried eschar and no erythema. Left femoral shallow wound without surrouding erythema. H&P: Results Labs Labs: Short CBC 11/16/24 Range/Units 22:57 WBC 6.8 (4.5-10.0) K/mm3 Hgb 11.8 L (12.0-15.0) g/dL Hct 36.0 L (37.0-47.0) % Plt Count 188 (150-375) k/mm3 BMP 11/16/24 22:57 Sodium 139 Potassium 3.1 L Chloride 106 Carbon Dioxide 20 L BUN 14 Creatinine 0.60 L Glucose 104 Calcium 9.4 Cardiac Enzymes 11/16/24 11/17/24 Range/Units 22:57 01:38 Troponin I < 0.012 < 0.012 (0.000-0.034) ng/mL Liver Function 11/16/24 Range/Units 22:57 Total Bilirubin 0.7 (0.2-1.3) mg/dL AST 24 (14-36) U/L ALT 15 (6-35) U/L Alkaline Phosphatase 124 (38-126) U/L Albumin 3.5 (3.5-5.1) g/dL Urine 11/16/24 Range/Units 23:10 Urine Color Dark yellow (Yellow) Urine Appearance Cloudy H (Clear) Urine pH 5.0 (5.0-9.0) Ur Specific [place] 1.024 (1.001-1.035) Urine Protein 1+ H (Negative) mg/dL Urine Glucose (UA) Negative (Negative) mg/dL Assessment and Plan Assessment and plan (1) Syncope: Code(s): R55 - Syncope and collapse Status: Acute (2) Chest pain: Code(s): R07.9 - Chest pain, unspecified Status: Acute (3) UTI (urinary tract infection): Code(s): N39.0 - Urinary tract infection, site not specified Status: Acute (4) Hypokalemia: Code(s): E87.6 - Hypokalemia Status: Acute (5) Pulmonary embolism: Code(s): I26.99 - Other pulmonary embolism without acute cor pulmonale Status: Acute (6) Anxiety: Code(s): F41.9 - Anxiety disorder, unspecified Status: Acute (7) Severe protein-calorie malnutrition: Code(s): E43 - Unspecified severe protein-calorie malnutrition Status: Acute Plan Patient developed syncopal episode with walking to the bathroom. She was able to make it back to her bed before having the event. Seizure seems less likely but she was confused and has a hx of seizures. Probably more likely related to her deconditioning made worse by the untreated UTI. CVA normally does not cause syncope. Acute PE was ruled out. Consider cardiac dysrhythmias. Will check EEG and Echo. Neuro consult. Resume Pradaxa. Start PT/OT. Follow Troponin. Awaiting final EKG read. Wound care for the left groin wound. Potassium replaced. Continue to follow and replace as needed. Review home medications and restart medications as appropriate. UA noted and concerning for UTI. Urine culture collected. Rocephin started. Narrow antibiotics when able. Her family is aware of her DNR status. Further recommendation as course dictates. DVT Prophylaxis - Pradaxa Code status - DNR
[2024-11-17] MEDS: SODIUM CHLORIDE 0.9% IV 1,000 ML 100 ML IV CONT ×2 (06:45→16:52)
[2024-11-17] MEDS: POTASSIUM CHLORIDE 20 MEQ ER TABLET 40 MEQ PO (06:45)
[2024-11-17] MEDS: TOPIRAMATE 25 MG TABLET 50 MG PO ×2 (08:32→20:21)
[2024-11-17] MEDS: PANTOPRAZOLE 40 MG TABLET PO (08:33)
[2024-11-17] MEDS: MIDODRINE HCL 2.5 MG TABLET 5 MG PO ×3 (08:33→17:23)
[2024-11-17] MEDS: PARoxetine 10 MG TABLET 30 MG PO (08:33)
[2024-11-17] MEDS: MULTIVITAMINS THERAPEUTIC TAB (*BKC) 1 TABLET PO (08:34)
[2024-11-17] MEDS: DABIGATRAN ETEXILATE 150 MG CAPSULE PO ×2 (09:09→20:21)
--- NOTE | 2024-11-17 13:49 | P.CDI_ITS ---
CDI Query Clarification Request BMI: 24.6 Nutritional Diagnostic Statement: Please refer to the comprehensive nutrition assessment for further information. If you agree with diagnosis of Severe Protein Calorie Malnutrition as related to inadequate energy intake of acute disease as related to significant weight loss of 34 ibs (16%) in 5 weeks and poor por intake< 50% of EER for > 5 days. Please specify severity if known: * Mild * Moderate * Severe * Other/Unknown
[2024-11-17 15:57] LABS: Troponin I < 0.012 ng/mL (0.000-0.034)
[2024-11-17] MEDS: ATORVASTATIN 40 MG TABLET PO (17:23)
[2024-11-17] MEDS: MELATONIN 3 MG TABLET PO (20:21)
[2024-11-18] VITALS (9 sets, daily range): BP systolic 101–134; BP diastolic 64–85; PULSE 69–107; RESP 18–20; TEMP 36.5–36.7; O2SAT 95–99
--- NOTE | 2024-11-18 | ECHO_ITS ---
Patient Info Name: Mahnaz Murphy Age: 59 years : 1965 Gender: Female Ht: 72 in Wt: 181 lbs BSA: 2.05 m2 HR: 74 bpm BP: 101 / 64 mmHg Heart Rhythm: Sinus Rhythm Exam Date: 11/18/2024 11:07 AM Exam Location: Echo Lab Patient Status: Inpatient Admit Date: 11/17/2024 Staff Ordering Physician: Carlos Salomon MD Crime Prevention Police Officer: Estelle Sandhu RDCS Attending Provider: Humaira Rodriguez DO Exam Type: CA echo doppler color flow Study Info Indications - Syncope Complete two-dimensional, color flow and Doppler transthoracic echocardiogram is performed. Summary 1. Left ventricular chamber dimension is normal. 2. Left ventricular systolic function is mildly reduced, estimated at 40-45%. 3. There is mildly increased left ventricular wall thickness. 4. The left ventricular diastolic function is grade I diastolic dysfunction. 5. Right ventricular systolic function is normal. 6. Left atrial chamber dimension is mildly enlarged. 7. Right atrial chamber dimension is mildly enlarged. 8. There is mild mitral valve prolapse. 9. There is mild mitral valve regurgitation. 10. There is mild tricuspid valve regurgitation. Left Ventricle Left ventricular chamber dimension is normal. Left ventricular systolic function is mildly reduced, estimated at 40-45%. There is mildly increased left ventricular wall thickness. The left ventricular diastolic function is grade I diastolic dysfunction. Right Ventricle Right ventricular chamber dimension is normal. Right ventricular systolic function is normal. Left Atria Left atrial chamber dimension is mildly enlarged. Right Atria Right atrial chamber dimension is mildly enlarged. Atrial Septum Intact interatrial septum visualized by color flow imaging. Aortic Valve The aortic valve is trileaflet. There is no aortic valve stenosis. There is no aortic valve regurgitation. Pulmonic Valve The pulmonic valve is not well visualized. There is trace pulmonic regurgitation. Mitral Valve There is mild mitral valve prolapse. There is mild mitral valve regurgitation. Tricuspid Valve There is mild tricuspid valve regurgitation. Pericardium/Pleural There is no pericardial effusion. Inferior Vena Cava Normal inferior vena cava with >50% collapse upon inspiration consistent with normal right atrial pressure, 3 mmHg. Aorta The aortic root size at the sinus of Valsalva is normal. Left Ventricular Outflow Tract Name Value Normal LVOT 2D LVOT Diameter 2.1 cm LVOT Doppler LVOT Peak Gradient 4 mmHg LVOT Mean Gradient 2 mmHg LVOT VTI 16 cm LVOT VTI/AV VTI Ratio 0.9 LVOT Stroke Volume 58 ml LVOT CO 12.4 l/min LVOT CI 6.0 l/min/m2 Pulmonic Valve Name Value Normal RVOT Doppler RVOT Peak Gradient 2 mmHg PV Doppler PV Peak Gradient 4 mmHg Mitral Valve Name Value Normal MV Doppler MV Decel [place] 312 cm/s2 MV PHT 45 ms MV Area (PHT) 4.9 cm2 4.0-5.0 MV Diastolic Function MV E Peak Velocity 49 cm/s MV A Peak Velocity 84 cm/s MV E/A 0.6 MV Decel Time 156 ms MV Annular TDI MV E/e' (Septal) 9.0 <=8.0 MV E/e' (Lateral) 4.0 <=8.0 MV E/e' (Average) 6.5 Tricuspid Valve Name Value Normal TV Regurgitation Doppler TR Peak Velocity 239 cm/s TR Peak Gradient 22 mmHg Estimated PAP/RSVP RA Pressure 3 mmHg <=5 PA Systolic Pressure 26 mmHg <36 RV Systolic Pressure 26 mmHg <36 Aortic Valve Name Value Normal AV Doppler AV Peak Velocity 120 cm/s AV Peak Gradient 6 mmHg AV Mean Gradient 3 mmHg AV VTI 18 cm AV Area (Cont Eq VTI) 3.2 cm2 >=3.0 AV Area (Cont Eq Sherman) 3.1 cm2 AV Regurgitation 2D LVOT Area 3.5 cm2 Ventricles Name Value Normal LV Dimensions 2D/MM IVS Diastolic Thickness (2D) 1.1 cm 0.6-1.0 LVID Diastole (2D) 4.4 cm 3.8-5.2 LVIW Diastolic Thickness (2D) 1.1 cm 0.6-0.9 LVID Systole (2D) 3.1 cm 2.2-3.5 LVOT Diameter 2.1 cm LV Mass (2D Cubed) 174.73 g 67.00-162.00 LV Mass Index (2D Cubed) 85 g/m2 43-95 Relative Wall Thickness (2D) 0.51 LV Fractional Shortening/Ejection Fraction 2D/MM LV Fractional Shortening (2D) 30 % 27-45 LV EF (2D Teicholz) 57 % 54-74 LV Diastolic Volume (4C MOD) 131 ml LV EF (4C MOD) 59 % LV Diastolic Volume (2C MOD) 139 ml LV EF (2C MOD) 47 % LV Diastolic Volume (BP MOD) 139 ml 46-106 LV Diastolic Volume Index (BP MOD) 68 ml/m2 29-61 LV Systolic Volume (BP MOD) 66 ml 14-42 LV Systolic Volume Index (BP MOD) 32 ml/m2 8-24 LV EF (BP MOD) 53 % 54-74 LV Diastolic Length (4C) 7.9 cm LV Systolic Length (4C) 7.5 cm LV Stroke Volume (4C MOD) 77 ml Atria Name Value Normal LA Dimensions LA Volume (4C A-L) 76 ml LA Volume (BP A-L) 70 ml RA Dimensions RA Area (4C) 16.7 cm2 <=18.0 Report Signatures
[2024-11-18] MEDS: SODIUM CHLORIDE 0.9% IV 1,000 ML 100 ML IV CONT ×3 (01:57→23:01)
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
[2024-11-18 04:52] LABS: Basophils Percent Auto 0.8 % (0.2-1.2); Eosinophils Absolute Auto 0.2 K/mm3 (0-0.3); Eosinophils Percent Auto 4.3 % (0-4.4); Hematocrit 33.2 % (37.0-47.0); Hemoglobin 10.5 g/dL (12.0-15.0); Immature Granulocyte Absolute 0.01 K/mm3 (0.00-0.031); Immature Granulocyte Percent A 0.3 % (0-0.5); Lymphocytes Absolute Auto 1.57 K/mm3 (0.9-3.2); Lymphocytes Percent Auto 41.8 % (18.3-44.2); Mean Corpuscular HGB Conc 31.6 g/dl (32-36); Mean Corpuscular Hemoglobin 32.6 pg (26-34); Mean Corpuscular Volume 103.1 fl (80-100); Mean Platelet Volume 10.2 fl (7.4-10.4); Monocytes Absolute Auto 0.5 K/mm3 (0.1-0.6); Neutrophils Absolute Auto 1.5 K/mm3 (1.3-6.7); Neutrophils Percent Auto 40.8 % (45.5-73.1); Platelet Count Result 183 k/mm3 (150-375); Red Blood Count 3.22 M/mm3 (4.2-5.4); Red Cell Distribution Width 14.5 % (11.5-14.5); White Blood Count 3.8 K/mm3 (4.5-10.0)
[2024-11-18 05:20] LABS: Anion Gap 5 mmol/L (4-12); Blood Urea Nitrogen 8 mg/dL (7-17); Carbon Dioxide 24 mmol/L (22-30); Chloride 112 mmol/L (98-107); Estimated CRCL calculation 106 ml/min; Estimated Glomerular Filt Rate > 60; Glucose 93 mg/dL (65-110); Magnesium 1.8 mg/dL (1.6-2.3); Phosphorus 3.8 mg/dL (2.5-4.5); Potassium 3.7 mmol/L (3.4-5.0); Sodium 141 mmol/L (137-145)
[2024-11-18 05:41] LABS: Thyroid Stimulating Hormone Reflex 0.587 uIU/mL (0.465-4.68)
[2024-11-18 06:09] LABS: Folic Acid 17.4 ng/mL (2.76->20)
[2024-11-18] MEDS: PARoxetine 10 MG TABLET 30 MG PO (09:38)
[2024-11-18] MEDS: MULTIVITAMINS THERAPEUTIC TAB (*BKC) 1 TABLET PO (09:38)
[2024-11-18] MEDS: DABIGATRAN ETEXILATE 150 MG CAPSULE PO ×2 (09:38→20:32)
[2024-11-18] MEDS: PANTOPRAZOLE 40 MG TABLET PO (09:39)
[2024-11-18] MEDS: TOPIRAMATE 25 MG TABLET 50 MG PO ×2 (09:39→20:33)
[2024-11-18] MEDS: MIDODRINE HCL 2.5 MG TABLET 5 MG PO ×3 (09:39→17:17)
--- NOTE | 2024-11-18 09:52 | P.PNIM_ITS ---
Progress Note: A&P Assessment and Plan (1) Syncope: Code(s): R55 - Syncope and collapse Status: Acute (2) Chest pain: Code(s): R07.9 - Chest pain, unspecified Status: Acute (3) UTI (urinary tract infection): Code(s): N39.0 - Urinary tract infection, site not specified Status: Acute (4) Hypokalemia: Code(s): E87.6 - Hypokalemia Status: Acute (5) Pulmonary embolism: Code(s): I26.99 - Other pulmonary embolism without acute cor pulmonale Status: Acute (6) Anxiety: Code(s): F41.9 - Anxiety disorder, unspecified Status: Acute (7) Severe protein-calorie malnutrition: Code(s): E43 - Unspecified severe protein-calorie malnutrition Status: Acute Plan Syncope Patient developed syncopal episode with walking to the bathroom. She was able to make it back to her bed before having the event. Seizure seems less likely but she was confused and has a hx of seizures. Probably more likely related to her deconditioning made worse by the untreated UTI. CVA normally does not cause syncope. CT head shows no acute intracranial issues Acute PE was ruled out. Consider cardiac dysrhythmias. check EEG and Echo. Neuro consult. Resume Pradaxa. Start PT/OT. Follow Troponin. Pending EEG read, pending echocardiogram Pending neurologist consultation Telemetry monitoring Wound care for the left groin wound. No sign of infection Hypokalemia Potassium replaced. Continue to follow and replace as needed. Acute UTI UA noted and concerning for UTI. Urine culture collected. Rocephin started. Narrow antibiotics when able. Her family is aware of her DNR status. Further recommendation as course dictates. DVT Prophylaxis - Pradaxa Code status - DNR Subjective Date/time seen: 11/18/24 09:52 Interval history: Patient is afebrile overnight, blood pressure low overnight, labs reviewed, h emoglobin stable 10.5 Patient denies lightheadedness, palpitation, focal weakness. Exam Narrative: GENERAL: Pleasant, in no acute distress. Well-nourished. - EYES: EOMI. Anicteric. - HENT: Moist mucous membranes. - LUNGS: Clear to auscultation bilateral ly, no wheezing, rhonchi, or rales. - CARDIOVASCULAR: Regular rate and rhyth m. No murmur. No JVD. - ABDOMEN: Soft, non-tender and non-dist ended. No palpable masses. - EXTREMITIES: No edema. Peripheral puls es 2+. Non-tender. - NEUROLOGIC: No focal neurological defi cits. CN II-XII grossly intact. - PSYCHIATRIC: Awake, Alert and oriented x 3. Appropriate mood and affect. - SKIN: No rashes or lesions. Warm. - LYMPH: No cervical lymphadenopathy. Objective Data Vital Signs Vital Signs: Vital Signs - 24 hr 11/17/24 12:00 11/17/24 14:01 11/17/24 16:00 Temperature 96.8 F L Pulse Rate 71 85 79 Respiratory Rate 18 Blood Pressure 100/57 L Pulse Oximetry 96 Oxygen Delivery 11/17/24 20:00 11/17/24 20:00 11/17/24 21:17 Temperature 98.3 F Pulse Rate 81 75 Respiratory Rate 18 Blood Pressure 98/53 L Pulse Oximetry 97 Oxygen Delivery Room Air 11/18/24 00:00 11/18/24 04:00 11/18/24 04:57 Temperature 97.8 F Pulse Rate 69 69 74 Respiratory Rate 18 Blood Pressure 101/64 Pulse Oximetry 95 Oxygen Delivery 11/18/24 09:08 Temperature Pulse Rate Respiratory Rate Blood Pressure Pulse Oximetry Oxygen Delivery Room Air Intake/Output Intake/Output: Intake & Output 11/15/24 11/16/24 11/17/24 11/18/24 23:59 23:59 23:59 23:59 Intake Total 2670 1478.3 Output Total 1725 600 Balance 945 878.3 Meds/Results Medications: Active Medications Generic Name Dose Route Start Last Admin Trade Name Freq PRN Reason Stop Dose Admin Acetaminophen 650 mg 11/17/24 03:03 11/17/24 20:22 Acetaminophen 325 Mg Tablet PO 650 mg Q4H PRN Administration Mild Pain (1-3) or Fever Atorvastatin Calcium 40 mg 11/17/24 18:00 11/17/24 17:23 Atorvastatin 40 Mg Tablet PO 40 mg QPM CRIS Administration Bisacodyl 5 mg 11/17/24 08:53 Bisacodyl 5 Mg Tablet Ec PO DAILY PRN Constipation Dabigatran 150 mg 11/17/24 09:00 11/18/24 09:38 Dabigatran Etexilate 150 Mg Capsule PO 150 mg Q12HR CRIS Administration Ceftriaxone Sodium 1 gm in 50 mls @ 100 mls/hr 11/18/24 02:00 11/18/24 02:25 Rocephin 1 Gm/Ns 50 Ml IVPB Infused Q24H CRIS Infusion Sodium Chloride 1,000 mls @ 100 mls/hr 11/17/24 06:35 11/18/24 01:57 Normal Saline Iv IV CONT 100 mls/hr .Q10H CRIS Administration Melatonin 3 mg 11/17/24 21:00 11/17/24 20:21 Melatonin 3 Mg Tablet PO 3 mg HS CRIS Administration Midodrine 5 mg 11/17/24 09:00 11/18/24 09:39 Midodrine Hcl 2.5 Mg Tablet PO 5 mg TID CRIS Administration Multivitamins Therapeutic 1 tablet 11/17/24 09:00 11/18/24 09:38 Multivitamins Therapeutic Tab (*Bkc) PO 1 tablet DAILY CRIS Administration Pantoprazole Sodium 40 mg 11/17/24 09:00 11/18/24 09:39 Pantoprazole 40 Mg Tablet PO 40 mg QAM CRIS Administration Paroxetine HCl 30 mg 11/17/24 09:00 11/18/24 09:38 Paroxetine 10 Mg Tablet PO 30 mg DAILY CRIS Administration Perflutren Lipid Microsphere 0 ml 11/17/24 14:53 Perflutren Lipid Microspheres 1.5 Ml Vial Diluted To 10 Ml Total Volume IV PUSH 11/20/24 14:53 ONCE PRN adequate visualization Protocol Topiramate 50 mg 11/17/24 09:00 11/18/24 09:39 Topiramate 25 Mg Tablet PO 50 mg Q12HR CRIS Administration Radiology Results: ITS Impressions Head CT 11/17/24 00:23 Impression: No acute intracranial hemorrhage or suspicious mass effect. Chest CTA 11/17/24 05:33 Impression: Suggestion of several small subacute to chronic or resolving pulmonary emboli in segmental branches in the right lower lobe. No large central pulmonary embolus. Clear lungs. Labs Labs: Laboratory Results - last 24 hr 11/17/24 11/18/24 15:19 04:18 WBC 3.8 L RBC 3.22 L Hgb 10.5 L Hct 33.2 L MCV 103.1 H MCH 32.6 MCHC 31.6 L RDW 14.5 Plt Count 183 MPV 10.2 Immature Gran % (Auto) 0.3 Neut % (Auto) 40.8 L Lymph % (Auto) 41.8 Braxton % (Auto) 12.0 H Eos % (Auto) 4.3 Baso % (Auto) 0.8 Lymph # (Auto) 1.57 Braxton # (Auto) 0.5 Eos # (Auto) 0.2 Baso # (Auto) 0.0 Abs Immat Gran (auto) 0.01 Absolute Neuts (auto) 1.5 Absolute Nucleated RBC 0.000 Nucleated RBC % 0.0 Sodium 141 Potassium 3.7 Chloride 112 H Carbon Dioxide 24 Anion Gap 5 BUN 8 D Creatinine 0.57 L Estim Creat Clear Calc 106 Estimated GFR > 60 Glucose 93 Calcium 9.0 Phosphorus 3.8 Magnesium 1.8 Troponin I < 0.012 Albumin 3.0 L Vitamin B12 553.0 Folate 17.4 TSH (Reflex) 0.587
--- NOTE | 2024-11-18 11:03 | WPDNEUROLOGY ---
Neurology EEG Report General Information Date of Study: 11/18/24 TEST eeg DIAGNOSIS syncope. CONDITION OF RECORDING awake, drowsy and asleep. EEG NUMBER 25-36 CLINICAL HISTORY Patient reports she lost consciousness yesterday morning she has history of blood clot in her heart about a month ago. EEG DESCRIPTION Basic resting occipital frequency consists of a well-organized low voltage 9 to 11 hertz per 2nd alpha admixed with low-voltage 15 to 18 hertz per 2nd beta. Alpha activity symmetrical blocks with eyes opening. Good anterior-posterior gradient is noted. Low-voltage beta activity seen admixed with waxing and waning alpha and theta activity during drowsiness involving into bilateral symmetrical sleep spindles an admixture of alpha theta and beta activity. Hyperventilation not done. Photic stimulation not done. Non paroxysmal. Nonfocal. Nonlateralizing. IMPRESSION Normal record. Clinical correlation recommended as the EEG can be normal in the setting of the seizure.
--- NOTE | 2024-11-18 14:43 | WPDNEURCNPN ---
Consult date: 11/18/24 HPI: Mahnaz Murphy is a 59 year old female has been admitted to the hospital through the emergency room for the chief complaint of syncopal episode and with the information that she is currently doing rehab after being admitted to [facility] and also she is being on ECMO. She was diagnosed to have UTI but has not received any treatment as such. Her medications include apixaban 5mg b.i.d., omeprazole 20mg daily, paroxetine 30mg daily, topiramate 50mg b.i.d., amitriptyline 50mg at night, and bupropion 300mg extended release daily. She is not allergic to any medications. She has ongoing history of varicose veins of the lower extremities, anxiety, and migraine in addition to the history of pulmonary embolism in the past she has also undergone previously back surgery. He has never smoker, initial exam in the emergency room revealed no focal deficit with pulse rate of 110 but normal blood pressure and afebrile, CBC was normal so as the BMP and UA she was also negative for the routine viral infections screening, has been admitted to the hospital with diagnosis of syncopal episode in addition to UTI, initial CT scan of the head was negative for any bleed, normal ventricles, CT of the chest documented chronic resolving pulmonary emboli in segmental branches in the right lower lobe but no central pulmonary embolus. Echocardiogram has already been done which revealed mildly enlarged left atrial chamber as well as right atrial chamber and mild mitral valve hip with regurgitation, EEG was obtained Review of Systems Review of Systems: All systems reviewed & are unremarkable except as noted in HPI and below PMFSH Past Medical History Medical History Seizure as a chaild Varicose vein of leg Migraine Gallbladder disorder Anxiety Pulmonary embolism Surgical History Surgical History History of dilation and curettage Previous back surgery L4-5 [place] teeth extracted Family History Family History Father Acute myocardial infarction Congestive heart failure Mother Acute myocardial infarction Sibling History of blood clots Diabetes mellitus Pancreatic cancer Sibling Cerebrovascular accident Social History Social History Social History: Was a heavy alcohol drinker on the weekends but no alcohol use for years. Life long nonsmoker No drug use or hx of drug use. Code status - DNR Surrogate decision maker - Sister Smoking status: Never smoker Alcohol intake: former Substance use: never Do You Feel Safe in your Home?: Yes Lack of Transportation: No Lack of Food: Never True Current Housing: I Have Housing Concerned About Future Housing: No Difficulty Paying Gas/Electric Bills: No Difficulty Paying for Meds: No Currently Unemployed: No Education: High School Diploma/GED Difficulty w/ Childcare or Family Care: No Spiritual care concerns: No Meds Home Medications and Allergies Home Medications ?Medication ?Instructions ?Recorded ?Confirmed ?Type apixaban 5 mg tablet (Eliquis) 5 mg PO BID 08/02/21 11/17/24 History multivitamin (Daily Multi-Vitamin 1 tablet PO DAILY 08/02/21 11/17/24 History tablet) omeprazole 20 mg capsule,delayed 20 mg PO DAILY 08/02/21 11/17/24 History release paroxetine HCl 30 mg tablet 30 mg PO DAILY 08/02/21 11/17/24 History topiramate 50 mg tablet 50 mg PO BID 08/02/21 11/17/24 History amitriptyline 50 mg tablet 50 mg PO HS 10/12/24 11/17/24 History acetaminophen 325 mg capsule 650 mg PO Q6H PRN pain 11/17/24 11/17/24 History atorvastatin 40 mg tablet 40 mg PO QPM 11/17/24 11/17/24 History bisacodyl 5 mg tablet 5 mg PO DAILY PRN constipation 11/17/24 11/17/24 History dabigatran etexilate 150 mg capsule 150 mg PO BID 11/17/24 11/17/24 History loperamide 2 mg capsule 2 mg PO Q6H PRN diarrhea 11/17/24 11/17/24 History melatonin 3 mg capsule 3 mg PO HS 11/17/24 11/17/24 History midodrine 5 mg tablet 5 mg PO TID 11/17/24 11/17/24 History Allergies Allergy/AdvReac Type Severity Reaction Status Date / Time No Known Allergies Allergy Mild Unverified 10/12/24 17:25 Vital Signs Vital Signs - 24 hr 11/17/24 16:00 11/17/24 20:00 11/17/24 20:00 Temperature Pulse Rate 79 81 Respiratory Rate Blood Pressure Pulse Oximetry Oxygen Delivery Room Air 11/17/24 21:17 11/18/24 00:00 11/18/24 04:00 Temperature 36.8 C Pulse Rate 75 69 69 Respiratory Rate 18 Blood Pressure 98/53 L Pulse Oximetry 97 Oxygen Delivery 11/18/24 04:57 11/18/24 08:00 11/18/24 09:08 Temperature 36.6 C Pulse Rate 74 78 Respiratory Rate 18 Blood Pressure 101/64 Pulse Oximetry 95 Oxygen Delivery Room Air 11/18/24 12:00 11/18/24 14:05 Temperature Pulse Rate 80 Respiratory Rate Blood Pressure Pulse Oximetry Oxygen Delivery Room Air Results Labs 11/18/24 04:18 11/18/24 04:18 Labs: Short CBC 11/18/24 Range/Units 04:18 WBC 3.8 L (4.5-10.0) K/mm3 Hgb 10.5 L (12.0-15.0) g/dL Hct 33.2 L (37.0-47.0) % Plt Count 183 (150-375) k/mm3 BMP 11/18/24 04:18 Sodium 141 Potassium 3.7 Chloride 112 H Carbon Dioxide 24 BUN 8 D Creatinine 0.57 L Glucose 93 Calcium 9.0 Cardiac Enzymes 11/17/24 Range/Units 15:19 Troponin I < 0.012 (0.000-0.034) ng/mL Liver Function 11/18/24 Range/Units 04:18 Albumin 3.0 L (3.5-5.1) g/dL
--- NOTE | 2024-11-18 15:07 | WPDNEURCNPN ---
Assessment and Plan Assessment and plan (1) Syncope: Code(s): R55 - Syncope and collapse Status: Acute Plan Fairly symmetrical neurological examination with negative CT scan of the head, suggestion of several small subacute to chronic resolving pulmonary emboli in segmental branches in the right lower lobe but no major pulmonary, patient still receiving apixaban 5mg twice a day along with atorvastatin 40mg daily and her EEG was completely normal she can be discharged continuation therapy as an outpatient, echocardiogram done during this hospitalization was normal. Syncopal episode could be secondary to vasovagal can be arranged for as an outpatient for the EMG nerve conduction study of the lower extremities. Consult date: 11/18/24 HPI: Mahnaz Murphy is a 59 year old female [facility] Past Medical History Medical History Seizure as a chaild Varicose vein of leg Migraine Gallbladder disorder Anxiety Pulmonary embolism Surgical History Surgical History History of dilation and curettage Previous back surgery L4-5 [place] teeth extracted Family History Family History Father Acute myocardial infarction Congestive heart failure Mother Acute myocardial infarction Sibling History of blood clots Diabetes mellitus Pancreatic cancer Sibling Cerebrovascular accident Social History Social History Social History: Was a heavy alcohol drinker on the weekends but no alcohol use for years. Life long nonsmoker No drug use or hx of drug use. Code status - DNR Surrogate decision maker - Sister Smoking status: Never smoker Alcohol intake: former Substance use: never Do You Feel Safe in your Home?: Yes Lack of Transportation: No Lack of Food: Never True Current Housing: I Have Housing Concerned About Future Housing: No Difficulty Paying Gas/Electric Bills: No Difficulty Paying for Meds: No Currently Unemployed: No Education: High School Diploma/GED Difficulty w/ Childcare or Family Care: No Spiritual care concerns: No Meds Home Medications and Allergies Home Medications ?Medication ?Instructions ?Recorded ?Confirmed ?Type apixaban 5 mg tablet (Eliquis) 5 mg PO BID 08/02/21 11/17/24 History multivitamin (Daily Multi-Vitamin 1 tablet PO DAILY 08/02/21 11/17/24 History tablet) omeprazole 20 mg capsule,delayed 20 mg PO DAILY 08/02/21 11/17/24 History release paroxetine HCl 30 mg tablet 30 mg PO DAILY 08/02/21 11/17/24 History topiramate 50 mg tablet 50 mg PO BID 08/02/21 11/17/24 History amitriptyline 50 mg tablet 50 mg PO HS 10/12/24 11/17/24 History acetaminophen 325 mg capsule 650 mg PO Q6H PRN pain 11/17/24 11/17/24 History atorvastatin 40 mg tablet 40 mg PO QPM 11/17/24 11/17/24 History bisacodyl 5 mg tablet 5 mg PO DAILY PRN constipation 11/17/24 11/17/24 History dabigatran etexilate 150 mg capsule 150 mg PO BID 11/17/24 11/17/24 History loperamide 2 mg capsule 2 mg PO Q6H PRN diarrhea 11/17/24 11/17/24 History melatonin 3 mg capsule 3 mg PO HS 11/17/24 11/17/24 History midodrine 5 mg tablet 5 mg PO TID 11/17/24 11/17/24 History Allergies Allergy/AdvReac Type Severity Reaction Status Date / Time No Known Allergies Allergy Mild Unverified 10/12/24 17:25 Vital Signs Vital Signs - 24 hr 11/17/24 16:00 11/17/24 20:00 11/17/24 20:00 Temperature Pulse Rate 79 81 Respiratory Rate Blood Pressure Pulse Oximetry Oxygen Delivery Room Air 11/17/24 21:17 11/18/24 00:00 11/18/24 04:00 Temperature 36.8 C Pulse Rate 75 69 69 Respiratory Rate 18 Blood Pressure 98/53 L Pulse Oximetry 97 Oxygen Delivery 11/18/24 04:57 11/18/24 08:00 11/18/24 09:08 Temperature 36.6 C Pulse Rate 74 78 Respiratory Rate 18 Blood Pressure 101/64 Pulse Oximetry 95 Oxygen Delivery Room Air 11/18/24 12:00 11/18/24 14:05 Temperature Pulse Rate 80 Respiratory Rate Blood Pressure Pulse Oximetry Oxygen Delivery Room Air Exam Narrative: exam revealed her to be awake alert cooperative in no obvious acute distress, head normocephalic with no bruit, ear nose throat examination normal, neck supple with no cervical bruit no thyromegaly no lymphadenopathy, heart regular with no murmur, lungs clear to auscultation, abdomen soft nontender normal bowel sounds, neurologically she is awake alert oriented x4 speech is not dysphasic not dysarthric not dysphonic pupils round regular feels the vision full extraocular movements full face symmetrical tongue midline motor examination revealed her to have no drift against gravity tone normal DTRs symmetrical plantars downgoing. Results Labs 11/18/24 04:18 11/18/24 04:18 Labs: Short CBC 11/18/24 Range/Units 04:18 WBC 3.8 L (4.5-10.0) K/mm3 Hgb 10.5 L (12.0-15.0) g/dL Hct 33.2 L (37.0-47.0) % Plt Count 183 (150-375) k/mm3 BMP 11/18/24 04:18 Sodium 141 Potassium 3.7 Chloride 112 H Carbon Dioxide 24 BUN 8 D Creatinine 0.57 L Glucose 93 Calcium 9.0 Cardiac Enzymes 11/17/24 Range/Units 15:19 Troponin I < 0.012 (0.000-0.034) ng/mL Liver Function 11/18/24 Range/Units 04:18 Albumin 3.0 L (3.5-5.1) g/dL
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
[2024-11-18] MEDS: ATORVASTATIN 40 MG TABLET PO (17:17)
[2024-11-18] MEDS: ACETAMINOPHEN 325 MG TABLET 650 MG PO (20:32)
[2024-11-18] MEDS: CEPHALEXIN 500 MG CAPSULE PO (20:33)
[2024-11-18] MEDS: MELATONIN 3 MG TABLET PO (20:33)
[2024-11-19] VITALS (9 sets, daily range): BP systolic 83–130; BP diastolic 53–87; PULSE 66–126; RESP 18; TEMP 36.4–36.7; O2SAT 95–100
[2024-11-19] MEDS: MIDODRINE HCL 2.5 MG TABLET 5 MG PO ×2 (08:08→12:46)
[2024-11-19] MEDS: PARoxetine 10 MG TABLET 30 MG PO (08:08)
[2024-11-19] MEDS: DABIGATRAN ETEXILATE 150 MG CAPSULE PO (08:08)
[2024-11-19] MEDS: PANTOPRAZOLE 40 MG TABLET PO (08:08)
[2024-11-19] MEDS: MULTIVITAMINS THERAPEUTIC TAB (*BKC) 1 TABLET PO (08:08)
[2024-11-19] MEDS: CEPHALEXIN 500 MG CAPSULE PO (08:08)
[2024-11-19] MEDS: TOPIRAMATE 25 MG TABLET 50 MG PO (08:09)
--- NOTE | 2024-11-19 11:18 | P.PNIM_ITS ---
Progress Note: A&P Assessment and Plan (1) Syncope: Code(s): R55 - Syncope and collapse Status: Acute (2) Chest pain: Code(s): R07.9 - Chest pain, unspecified Status: Acute (3) UTI (urinary tract infection): Code(s): N39.0 - Urinary tract infection, site not specified Status: Acute (4) Hypokalemia: Code(s): E87.6 - Hypokalemia Status: Acute (5) Pulmonary embolism: Code(s): I26.99 - Other pulmonary embolism without acute cor pulmonale Status: Acute (6) Anxiety: Code(s): F41.9 - Anxiety disorder, unspecified Status: Acute (7) Severe protein-calorie malnutrition: Code(s): E43 - Unspecified severe protein-calorie malnutrition Status: Acute Plan Syncope Patient developed syncopal episode with walking to the bathroom. She was able to make it back to her bed before having the event. Seizure seems less likely but she was confused and has a hx of seizures. Probably more likely related to her deconditioning made worse by the untreated UTI. CVA normally does not cause syncope. CT head shows no acute intracranial issues Acute PE was ruled out. Consider cardiac dysrhythmias. check EEG and Echo. Neuro consult. Resume Pradaxa. Start PT/OT. Follow Troponin. Pending EEG read, echocardiogram 1. Left ventricular chamber dimension is normal. 2. Left ventricular systolic function is mildly reduced, estimated at 40-45%. 3. There is mildly increased left ventricular wall thickness. 4. The left ventricular diastolic function is grade I diastolic dysfunction. 5. Right ventricular systolic function is normal. 6. Left atrial chamber dimension is mildly enlarged. 7. Right atrial chamber dimension is mildly enlarged. 8. There is mild mitral valve prolapse. 9. There is mild mitral valve regurgitation. 10. There is mild tricuspid valve regurgitation. appreciate neurologist consultation Telemetry monitoring: No significant arrhythmia rate to syncope Suspect vasovagal syncope systolic chf Left ventricular systolic function is mildly reduced, estimated at 40-45%. consult industrial relations commissioner for evaluation Appreciate cardiology consultation, industrial relations commissioner will follow-up patient office Wound care for the left groin wound. No sign of infection Hypokalemia Potassium replaced. Continue to follow and replace as needed. Acute UTI UA noted and concerning for UTI. Urine culture collected. Received Rocephin Changed to Keflex p.o. per ID pharmacist recommendation Her family is aware of her DNR status. Further recommendation as course di ctates. DVT Prophylaxis - Pradaxa Code status - DNR Subjective Date/time seen: 11/19/24 11:18 Interval history: I saw exam patient today. Patient denies headache, lightheadedness, palpitation, focal weakness. Patient afebrile, blood pressure stable. Labs reviewed, echocardiogram showed heart failure EF 40-45%. Patient has no sign of fluid overload Exam Narrative: GENERAL: Pleasant, in no acute distress. Well-nourished. - EYES: EOMI. Anicteric. - HENT: Moist mucous membranes. - LUNGS: Clear to auscultation bilateral ly, no wheezing, rhonchi, or rales. - CARDIOVASCULAR: Regular rate and rhyth m. No murmur. No JVD. - ABDOMEN: Soft, non-tender and non-dist ended. No palpable masses. - EXTREMITIES: No edema. Peripheral puls es 2+. Non-tender. - NEUROLOGIC: No focal neurological defi cits. CN II-XII grossly intact. - PSYCHIATRIC: Awake, Alert and oriented x 3. Appropriate mood and affect. - SKIN: No rashes or lesions. Warm. - LYMPH: No cervical lymphadenopathy. Objective Data Vital Signs Vital Signs: Vital Signs - 24 hr 11/18/24 12:00 11/18/24 14:00 11/18/24 14:05 Temperature 98.1 F Pulse Rate 80 107 H Respiratory Rate 18 Blood Pressure 134/85 Pulse Oximetry 99 Oxygen Delivery Room Air 11/18/24 15:33 11/18/24 16:00 11/18/24 20:00 Temperature Pulse Rate 86 Respiratory Rate Blood Pressure Pulse Oximetry Oxygen Delivery Room Air Room Air 11/18/24 20:00 11/18/24 20:31 11/19/24 00:00 Temperature 97.7 F Pulse Rate 83 83 66 Respiratory Rate 20 Blood Pressure 113/65 Pulse Oximetry 99 Oxygen Delivery 11/19/24 04:00 11/19/24 05:21 11/19/24 08:00 Temperature 97.7 F 97.7 F Pulse Rate 68 70 107 H Respiratory Rate 18 18 Blood Pressure 120/71 118/87 Pulse Oximetry 96 97 Oxygen Delivery 11/19/24 08:00 11/19/24 08:00 11/19/24 08:14 Temperature 97.7 F Pulse Rate 85 126 H Respiratory Rate 18 Blood Pressure 83/53 L Pulse Oximetry 95 97 Oxygen Delivery Room Air 11/19/24 08:15 11/19/24 08:28 Temperature 97.6 F Pulse Rate 84 Respiratory Rate 18 Blood Pressure 130/78 Pulse Oximetry 100 95 Oxygen Delivery Room Air Intake/Output Intake/Output: Intake & Output 11/16/24 11/17/24 11/18/24 11/19/24 23:59 23:59 23:59 23:59 Intake Total 2670 3838.3 530 Output Total 3153 360 2852 Balance 945 3238.3 -1070 Meds/Results Medications: Active Medications Generic Name Dose Route Start Last Admin Trade Name Freq PRN Reason Stop Dose Admin Acetaminophen 650 mg 11/17/24 03:03 11/18/24 20:32 Acetaminophen 325 Mg Tablet PO 650 mg Q4H PRN Administration Mild Pain (1-3) or Fever Atorvastatin Calcium 40 mg 11/17/24 18:00 11/18/24 17:17 Atorvastatin 40 Mg Tablet PO 40 mg QPM CRIS Administration Bisacodyl 5 mg 11/17/24 08:53 Bisacodyl 5 Mg Tablet Ec PO DAILY PRN Constipation Cephalexin HCl 500 mg 11/18/24 21:00 11/19/24 08:08 Cephalexin 500 Mg Capsule PO 11/23/24 09:01 500 mg Q12HR CRIS Administration Dabigatran 150 mg 11/17/24 09:00 11/19/24 08:08 Dabigatran Etexilate 150 Mg Capsule PO 150 mg Q12HR CRIS Administration Sodium Chloride 1,000 mls @ 100 mls/hr 11/17/24 06:35 11/18/24 23:01 Normal Saline Iv IV CONT 100 mls/hr .Q10H CRIS Administration Melatonin 3 mg 11/17/24 21:00 11/18/24 20:33 Melatonin 3 Mg Tablet PO 3 mg HS CRIS Administration Midodrine 5 mg 11/17/24 09:00 11/19/24 08:08 Midodrine Hcl 2.5 Mg Tablet PO 5 mg TID CRIS Administration Multivitamins Therapeutic 1 tablet 11/17/24 09:00 11/19/24 08:08 Multivitamins Therapeutic Tab (*Bkc) PO 1 tablet DAILY CRIS Administration Pantoprazole Sodium 40 mg 11/17/24 09:00 11/19/24 08:08 Pantoprazole 40 Mg Tablet PO 40 mg QAM CRIS Administration Paroxetine HCl 30 mg 11/17/24 09:00 11/19/24 08:08 Paroxetine 10 Mg Tablet PO 30 mg DAILY CRIS Administration Perflutren Lipid Microsphere 0 ml 11/17/24 14:53 Perflutren Lipid Microspheres 1.5 Ml Vial Diluted To 10 Ml Total Volume IV PUSH 11/20/24 14:53 ONCE PRN adequate visualization Protocol Topiramate 50 mg 11/17/24 09:00 11/19/24 08:09 Topiramate 25 Mg Tablet PO 50 mg Q12HR CRIS Administration Radiology Results: ITS Impressions Head CT 11/17/24 00:23 Impression: No acute intracranial hemorrhage or suspicious mass effect. Chest CTA 11/17/24 05:33 Impression: Suggestion of several small subacute to chronic or resolving pulmonary emboli in segmental branches in the right lower lobe. No large central pulmonary embolus. Clear lungs.
--- NOTE | 2024-11-19 14:55 | PM.CNCAR ---
Assessment and Plan Assessment and plan (1) Cardiomyopathy: Code(s): I42.9 - Cardiomyopathy, unspecified Status: Acute (2) Syncope: Code(s): R55 - Syncope and collapse Status: Acute (3) Pulmonary embolism: Code(s): I26.99 - Other pulmonary embolism without acute cor pulmonale Status: Acute Plan 59-year-old woman with DVT/pulmonary embolism status post endovascular thrombectomy, hypertension, and hyperlipidemia who presents with syncopal episode of now found to have mild cardiomyopathy. New onset cardiomyopathy -given that she previously is physically functional, the newly depressed left ventricular ejection fraction may be secondary to her most recent events including the pulmonary embolism and infection requiring IV antibiotics -at this time she is hypovolemic and would recommend increasing oral hydration as well as oral intake -she should continue working with physical therapy at home and staying physically active -would recommend decreasing midodrine to 2.5 mg p.o. b.i.d. -not a good candidate for guideline directed medical therapy at this time given her orthostatic/vasovagal syncopal events Syncope -most likely orthostatic/vasovagal in nature given the acute stressor of recent events and most likely decreased oral intake during hospitalization as well as the diarrhea most likely from the IV antibiotics DVT/pulmonary embolism -continue anticoagulation Hypertension -given recent stressor events, would hold off on antihypertensives at this time -she does have some mild thickening of her left ventricular saez on echocardiogram She can be discharged to follow up with me in clinic in the next few weeks where we will attempt to wean her off the midodrine and possibly start her on guideline directed medical therapy as well as repeat transthoracic echocardiogram History of Present Illness History of Present Illness Consult date/time: 11/19/24 14:55 Requesting physician: Carol Quesada MD Consult reason: Other Reason For Visit: Syncope, UTI Narrative: 59-year-old woman with DVT/pulmonary embolism status post endovascular thrombectomy, hypertension, and hyperlipidemia who presents with syncopal episode of now found to have mild cardiomyopathy. She was at facility for physical therapy when she was with her BATCHER OPERATOR ambulating to the restroom to urinate and she felt very lightheaded and was escorted back to her bed where she lost consciousness for about 30 seconds. Preceding these events she had significant pulmonary embolism leading to cardiac output compromise requiring endovascular thrombectomy followed by infection requiring IV antibiotics and subsequent diarrhea. Prior to these events she will work 9 hour shift standing up and when she ambulates, she would not have any significant chest pain or shortness of breath. On occasion whenever she walks, she would stop briefly to catch her breath but is not overtly short of breath. Review of Systems Cardiovascular: Cardiovascular: Reports as per HPI Respiratory: Respiratory: Reports as per HPI [facility] Past Medical History Medical History Seizure as a chaild Varicose vein of leg Migraine Gallbladder disorder Anxiety Pulmonary embolism Surgical History Surgical History History of dilation and curettage Previous back surgery L4-5 [place] teeth extracted Family History Family History Father Acute myocardial infarction Congestive heart failure Mother Acute myocardial infarction Sibling History of blood clots Diabetes mellitus Pancreatic cancer Sibling Cerebrovascular accident Social History Social History Social History: Was a heavy alcohol drinker on the weekends but no alcohol use for years. Life long nonsmoker No drug use or hx of drug use. Code status - DNR Surrogate decision maker - Sister Smoking status: Never smoker Alcohol intake: former Substance use: never Do You Feel Safe in your Home?: Yes Lack of Transportation: No Lack of Food: Never True Current Housing: I Have Housing Concerned About Future Housing: No Difficulty Paying Gas/Electric Bills: No Difficulty Paying for Meds: No Currently Unemployed: No Education: High School Diploma/GED Difficulty w/ Childcare or Family Care: No Spiritual care concerns: No Meds Home Medications and Allergies Home Medications ?Medication ?Instructions ?Recorded ?Confirmed ?Type apixaban 5 mg tablet (Eliquis) 5 mg PO BID 08/02/21 11/17/24 History multivitamin (Daily Multi-Vitamin 1 tablet PO DAILY 08/02/21 11/17/24 History tablet) omeprazole 20 mg capsule,delayed 20 mg PO DAILY 08/02/21 11/17/24 History release paroxetine HCl 30 mg tablet 30 mg PO DAILY 08/02/21 11/17/24 History topiramate 50 mg tablet 50 mg PO BID 08/02/21 11/17/24 History amitriptyline 50 mg tablet 50 mg PO HS 10/12/24 11/17/24 History acetaminophen 325 mg capsule 650 mg PO Q6H PRN pain 11/17/24 11/17/24 History atorvastatin 40 mg tablet 40 mg PO QPM 11/17/24 11/17/24 History bisacodyl 5 mg tablet 5 mg PO DAILY PRN constipation 11/17/24 11/17/24 History dabigatran etexilate 150 mg capsule 150 mg PO BID 11/17/24 11/17/24 History loperamide 2 mg capsule 2 mg PO Q6H PRN diarrhea 11/17/24 11/17/24 History melatonin 3 mg capsule 3 mg PO HS 11/17/24 11/17/24 History midodrine 5 mg tablet 5 mg PO TID 11/17/24 11/17/24 History Allergies Allergy/AdvReac Type Severity Reaction Status Date / Time No Known Allergies Allergy Mild Unverified 10/12/24 17:25 Vital Signs Vital Signs - 24 hr 11/18/24 15:33 11/18/24 16:00 11/18/24 20:00 Temperature Pulse Rate 86 Respiratory Rate Blood Pressure Pulse Oximetry Oxygen Delivery Room Air Room Air 11/18/24 20:00 11/18/24 20:31 11/19/24 00:00 Temperature 36.5 C Pulse Rate 83 83 66 Respiratory Rate 20 Blood Pressure 113/65 Pulse Oximetry 99 Oxygen Delivery 11/19/24 04:00 11/19/24 05:21 11/19/24 08:00 Temperature 36.5 C 36.5 C Pulse Rate 68 70 107 H Respiratory Rate 18 18 Blood Pressure 120/71 118/87 Pulse Oximetry 96 97 Oxygen Delivery 11/19/24 08:00 11/19/24 08:00 11/19/24 08:14 Temperature 36.5 C Pulse Rate 85 126 H Respiratory Rate 18 Blood Pressure 83/53 L Pulse Oximetry 95 97 Oxygen Delivery Room Air 11/19/24 08:15 11/19/24 08:28 11/19/24 12:00 Temperature 36.4 C Pulse Rate 84 84 Respiratory Rate 18 Blood Pressure 130/78 Pulse Oximetry 100 95 Oxygen Delivery Room Air Exam Const: General: comfortable HENMT: Mouth: Yes dry mucous membranes Eyes: EOM: EOMs intact bilaterally Neck: Neck: no JVD Resp: Effort & Inspection: normal respiratory effort Auscultation: clear to auscultation bilaterally Cardio: Rate: regular rate Rhythm: regular rhythm Neuro: Speech: normal speech Extrem: General: pedal edema Other: She does have swelling of her right leg more so than the left but it is nonpitting Results Labs and Meds 11/18/24 04:18 11/18/24 04:18 Lab results: Intake and Output 11/18/24 11/19/24 11/19/24 23:59 07:59 15:59 Intake Total 1240 290 240 Output Total 1100 900 Balance 1240 -810 -660 Intake: IV 1000 Sodium Chloride 0.9% IV 1,000 1000 ml @ 100 mls/hr IV CONT .Q10H CRIS Rx#:[id number] Oral 240 290 240 Output: Urine 1100 900 Other: # Unmeasured Voids 3 Number of Bowel Movements Today 1
--- NOTE | 2024-11-19 15:51 | PM.DS ---
DS: Admitting Diagnosis Discharge Date 11/19/24 Admitting Diagnosis (1) Syncope: Code(s): R55 - Syncope and collapse Status: Acute (2) Chest pain: Code(s): R07.9 - Chest pain, unspecified Status: Acute (3) UTI (urinary tract infection): Code(s): N39.0 - Urinary tract infection, site not specified Status: Acute (4) Hypokalemia: Code(s): E87.6 - Hypokalemia Status: Acute (5) Pulmonary embolism: Code(s): I26.99 - Other pulmonary embolism without acute cor pulmonale Status: Acute (6) Anxiety: Code(s): F41.9 - Anxiety disorder, unspecified Status: Acute (7) Severe protein-calorie malnutrition: Code(s): E43 - Unspecified severe protein-calorie malnutrition Status: Acute DS: Discharge Diagnosis Discharge Diagnosis (1) Syncope: Code(s): R55 - Syncope and collapse Status: Acute (2) Chest pain: Code(s): R07.9 - Chest pain, unspecified Status: Acute (3) UTI (urinary tract infection): Code(s): N39.0 - Urinary tract infection, site not specified Status: Acute (4) Hypokalemia: Code(s): E87.6 - Hypokalemia Status: Acute (5) Pulmonary embolism: Code(s): I26.99 - Other pulmonary embolism without acute cor pulmonale Status: Acute (6) Anxiety: Code(s): F41.9 - Anxiety disorder, unspecified Status: Acute (7) Severe protein-calorie malnutrition: Code(s): E43 - Unspecified severe protein-calorie malnutrition Status: Acute DS: Summary Hospital Course Hospital Course: Per H&P: 59yo female with anxiety, migraines and hx of PE here for syncopal episode. Patient has syncopal episode prior to her last hospitalization on October 13 which prompted admission to [facility]. She had confusion in the was concern for meningitis. She has photophobia. He was started on antibiotics with improvement of her symptoms. She has been off her Eliquis for few days and went up walking, she felt a cramp in her calf and then became unresponsive and a code argelia was called. She states that she was brought to the OR and a clot was removed from her heart. She was placed on ECMO. She has a left groin sore that was draining purulent material but this has improved with dressing changes. No history of CVA but does state that she has some drooling with drinking noted from the right side. She was discharged about 2-3 weeks ago to [facility] for therapy. She has been at the rehab facility for about 2 weeks. She was doing well but does complain of some lightheadedness with standing if she gets up too fast. She states her systolic blood pressure normally is elevated after walking to about 155. She was switched from Eliquis at discharge to Pradaxa by the rehab physician for unclear reasons. She has been compliant with Pradaxa except that 1 dose was skipped on Saturday night. On the day of admission, patient was walking to the bathroom when she felt presyncopal. She was immediately return to her bed where she was laid down. There was no fall. There was no head injury. She had a syncopal episode lasting about 30 seconds. There is no mention of seizure-like activity but she was confused when she awoke. She does not recall how long she was confused. There was no urine incontinence or tongue biting. She has a history of epilepsy when she was young around 13yo. She was on anti epileptic medication until 17 years of age. No seizures since age 17. No myalgias. She has been eating okay. No nausea or vomiting. She did have diarrhea on the day of admission. She has not been on antibiotics since her discharge from [facility]. She did have some chest pressure after the event as ?someone sitting on my chest?. She has no history of coronary disease but does have mitral valve prolapse. She had a stress test about 3 years ago that was negative. She has not been having any chest pain with activity but does feel more short of breath when she is active at rehab. She also had a dull pain in the base of her neck associated with the chest discomfort. No fever or chills. No melena or hematochezia. She does complain of dysuria and was diagnosed with UTI at the facility but was not on antibiotics prior to admission. She is brought to the emergency room for evaluation In the ED, she was hemodynamically stable. Mild tachycardia at 110 with elevated RR 32 but no fevers and not hypoxic. CBC normal except normocytic anemia (Hgb 11.8). Potassium 3.1 with serum bicarb 20 (AG 13) o/w CMP normal. BNP 103. Troponin negative x2. UA is concerning for UTI. COVID, Influenza and RSV PCR negative. CT Head showing no acute intracranial hemorrhage or suspicious mass effect. CTA Chest showing clear lungs and suggestion of several small subacute to chronic or resolving pulmonary emboli in segmental branches in the right lower lobe. No large central pulmonary embolus. EKG showing sinus with LVH and poor R wave progression. She was given Tylenol and Rocephin and admitted for further care. The following med issues have been addressed during hospitalization Syncope Patient developed syncopal episode with walking to the bathroom. She was able to make it back to her bed before having the event. Seizure seems less likely but she was confused and has a hx of seizures. Probably more likely related to her deconditioning made worse by the untreated UTI. CVA normally does not cause syncope. CT head shows no acute intracranial issues Acute PE was ruled out. Consider cardiac dysrhythmias. check EEG and Echo. Neuro consult. Resume Pradaxa. Start PT/OT. Follow Troponin. Pending EEG read, echocardiogram 1. Left ventricular chamber dimension is normal. 2. Left ventricular systolic function is mildly reduced, estimated at 40-45%. 3. There is mildly increased left ventricular wall thickness. 4. The left ventricular diastolic function is grade I diastolic dysfunction. 5. Right ventricular systolic function is normal. 6. Left atrial chamber dimension is mildly enlarged. 7. Right atrial chamber dimension is mildly enlarged. 8. There is mild mitral valve prolapse. 9. There is mild mitral valve regurgitation. 10. There is mild tricuspid valve regurgitation. appreciate neurologist consultation Telemetry monitoring: No significant arrhythmia rate to syncope Suspect vasovagal syncope systolic chf Left ventricular systolic function is mildly reduced, estimated at 40-45%. consult furniture assembler for evaluation Appreciate cardiology consultation, furniture assembler will follow-up patient in office Wound care for the left groin wound. No sign of infection Hypokalemia Potassium replaced. Continue to follow and replace as needed per PCP Corrected Acute UTI UA noted and concerning for UTI. Urine culture collected. Received Rocephin Changed to Keflex p.o. per ID pharmacist recommendation Patient will be discharged home with home health Time Spent with Patient Time attestation: Total time spent providing and/or coordinating discharge services: Exam Narrative: GENERAL: Pleasant, in no acute distress. Well-nourished. - EYES: EOMI. Anicteric. - HENT: Moist mucous membranes. - LUNGS: Clear to auscultation bilaterally, no wheezing, rhonchi, or rales. - CARDIOVASCULAR: Regular rate and rhythm. No murmur. No JVD. - ABDOMEN: Soft, non-tender and non-distended. No palpable masses. - EXTREMITIES: No edema. Peripheral pulses 2+. Non-tender. - NEUROLOGIC: No focal neurological deficits. CN II-XII grossly intact. - PSYCHIATRIC: Awake, Alert and oriented x 3. Appropriate mood and affect. - SKIN: No rashes or lesions. Warm. - LYMPH: No cervical lymphadenopathy. Discharge Plan Discharge Attending physician on discharge: Carol Quesada Consulting providers: Liam Ying; Rachael Reynaga Discharging Clinician: Carol Quesada Anticipated Discharge Date/Time: 11/19/24 15:48 Patient Disposition: Home Health Service Discharge Instructions: Care Coordination: Patient to have [facility] for PT/OT eval and treat, and snf. Their phone number [phone] if you have any questions; they will contact you to schedule their first visit. Patient Instructions: Antibiotic Form, Safe Use of Anticoagulants (GEN) Patient Language: Greek Stand Alone Forms: General Discharge Information Follow-up/Referrals: Patricio Stern MD [Physician] - Call for Appointment Discharge Medications: New cephalexin 500 mg Capsule 500 mg PO Q12HR Qty: 8 0RF midodrine 2.5 mg Tablet 2.5 mg PO BID Qty: 60 0RF Continued amitriptyline 50 mg tablet 50 mg PO HS paroxetine HCl 30 mg tablet 30 mg PO DAILY topiramate 50 mg tablet 50 mg PO BID Eliquis 5 mg tablet 5 mg PO BID omeprazole 20 mg capsule,delayed release(DR/EC) 20 mg PO DAILY multivitamin [Daily Multi-Vitamin] Tablet 1 tablet PO DAILY atorvastatin 40 mg tablet 40 mg PO QPM acetaminophen 325 mg capsule 650 mg PO Q6H PRN (Reason: pain) bisacodyl 5 mg tablet 5 mg PO DAILY PRN (Reason: constipation) loperamide 2 mg capsule 2 mg PO Q6H PRN (Reason: diarrhea) melatonin 3 mg capsule 3 mg PO HS midodrine 5 mg tablet 5 mg PO TID Rx Instructions: do not give last dose of day after 6PM or within 4 hrs of bedtime dabigatran etexilate 150 mg capsule 150 mg PO BID Date of admission: 11/17/24 01:52 Primary Care Provider: UNKNOWN,DOCTOR Admitting Provider: Humaira Rodriguez Attending physician on admission: Humaira Rodriguez Condition: Stable
== END 2024-11-19 17:23 | disposition home health service (06) ==
LOC: ANHED 11-17 01:55 → ANH2MED 11-17 02:52
PROVIDERS: Internal Medicine; Admitting Provider Internal Medicine; Emergency Provider Emergency Medicine; Visit Provider Hospitalist
DX: R55 Syncope and collapse (principal); N39.0 Urinary tract infection, site not specified; I42.9 Cardiomyopathy, unspecified; I26.99 Other pulmonary embolism without acute cor pulmonale; Z86.718 Personal history of other venous thrombosis and embolism; I34.1 Nonrheumatic mitral (valve) prolapse; I11.0 Hypertensive heart disease with heart failure; I50.20 Unspecified systolic (congestive) heart failure; E43 Unspecified severe protein-calorie malnutrition; Z68.24 Body mass index [BMI] 24.0-24.9, adult; E87.6 Hypokalemia; G43.909 Migraine, unspecified, not intractable, without status migrainosus; H53.149 Visual discomfort, unspecified; F41.9 Anxiety disorder, unspecified; I83.90 Asymptomatic varicose veins of unspecified lower extremity; Z66 Do not resuscitate; Z20.822 Contact with and (suspected) exposure to COVID-19; Z79.01 Long term (current) use of anticoagulants; Z79.899 Other long term (current) drug therapy
CPT/HCPCS: 36415; 70450; 71275; 80053; 80069; 81001; 82607; 82746; 83605; 83735; 83880; 84145; 84443; 84484; 85025; 85610; 85730; 87077; 87086; 87186; 87637; 93005; 93306; 95816; 96361; 96365; 97162; 97165; 99285; A9270; G0378; J0696; J7030; Q9967